=== PATIENT | female | born 1945 | race African-American/Black ===

== ENCOUNTER 2024-07-25 17:59 | Emergency (ER) | payer MEDICARE, SELFPAY ==
--- NOTE | ~2024-07-25 | XR_ITS ---
EXAMINATION: XR chest 2V Exam Date/Time: 07/25/2024 19:09 GAMMA OPERATOR HISTORY: sob Comparison: None. RESULT: Lines, tubes, and devices: Coronary stenting. Lungs and pleura: Hyperexpanded lungs. Biapical pleural scarring. Bilateral upper lobe volume loss w ith minor fissure and hilar retraction. Patchy airspace and interstitial changes in the right upper l obe. Cardiomediastinal silhouette: Normal heart size. Aortic unfolding and calcification. Other: No acute osseous or upper abdominal finding. IMPRESSION: Right upper lobe opacities may represent right upper lobe pneumonia, overlying a background of upper lobe volume loss and fibrolinear scarring, and likely emphysematous change. Reviewed, dictated and finalized at location K. A OPERATOR IMPRESSION: Right upper lobe opacities may represent right upper lobe pneumonia, overlying a background of upper lobe volume loss and fibrolinear scarring, and likely emp hysematous change.
[2024-07-25 18:37] VITALS: BP 134/67; PULSE 82; RESP 18; TEMP 36.2; O2SAT 97
--- NOTE | 2024-07-25 18:38 | ED.SOB ---
HPI - SOB/Dyspnea General Chief Complaint: Shortness of Breath/Dyspnea <Jelena Dominguez PA-C - Last Filed: 07/26/24 10:41> Stated Complaint: sob, anxiety <Jelena Dominguez PA-C - Last Filed: 07/26/24 10:41> Time Seen by Provider: 07/25/24 18:38 <Jelena Dominguez PA-C - Last Filed: 07/26/24 10:41> Focused HPI: This is a 78 year old female that presents to the ER for shortness of breath. Ongoing over the last couple of hours. Reports a cough. Denies fever, chest pain. GENERAL: Elderly, well-nourished, and in no acute distress. HEAD: Normocephalic, atraumatic. CHEST: Clear to auscultation. ?No respiratory distress. HEART: Regular rate and rhythm.? NEURO: ?Alert and oriented x3. Patient screened in triage and initial orders placed.? ?Additional care and disposition to be based upon?diagnostic testing and treatment. <Jelena Dominguez PA-C - Last Filed: 07/26/24 10:41> History of Present Illness HPI Narrative: Agree with the HPI above. Patient has complex past medical history including right-sided lung cancer status post chemotherapy 6 weeks ago, abdominal aortic aneurysm status post repair at the [facility] 2 weeks ago. She is on aspirin and Plavix but no other anticoagulants. She called EMS today for difficulty in breathing and feeling anxious. Patient states she has a history of bronchitis, does not smoke presently, has tried her inhalers at home without any relief of her symptoms. Denies any leg or calf swelling, cramping. No chest pain or chest pressure. No nausea vomiting, headache or vision changes or fever/chills. <Marcus Le MD - Last Filed: 07/26/24 02:49> Related Data Allergies/Adverse Reactions: Allergies Allergy/AdvReac Type Severity Reaction Status Date / Time No Known Allergies Allergy Verified 07/25/24 23:07 <Jelena Dominguez PA-C - Last Filed: 07/26/24 10:41> Review of Systems Review of Systems: As reviewed above in HPI <Marcus Le MD - Last Filed: 07/26/24 02:49> Exam Narrative: GENERAL: [Well-appearing, well-nourished, and in no acute distress.] HEAD: [Normocephalic, atraumatic.] EYES: [PERRLA and EOMI.] ENT: Nares clear, no rhinorrhea or epistaxis. Mucous membranes moist. NECK: Supple. CHEST: Coarse right-sided breath sounds, no wheezing or tachypnea. No accessory muscle use. HEART: [Regular rate and rhythm]. No murmur heard. [Normal peripheral pulses.] ABDOMEN: [Soft, nondistended], [nontender], [No rigidity or guarding] EXTREMITIES: Normal range of motion. [No edema.] Proximal Right lower extremity with previous surgical scars that appear clean, dry, intact SKIN: Warm, dry, no rash. NEURO: [No focal deficits]. Alert and oriented [x3.] PSYCH: [Normal mood and affect.] <Marcus Le MD - Last Filed: 07/26/24 02:49> Course Vital Signs Vital signs: Vital Signs Temperature 97.1 F L 07/25/24 18:37 Pulse Rate 82 07/25/24 18:37 Respiratory Rate 18 07/25/24 18:37 Blood Pressure 134/67 07/25/24 18:37 Pulse Oximetry 97 07/25/24 18:37 Temperature 97.1 F L 07/25/24 18:37 Pulse Rate 84 07/26/24 02:44 Respiratory Rate 28 H 07/26/24 02:44 Blood Pressure 151/86 H 07/26/24 02:44 Pulse Oximetry 98 07/26/24 02:44 Oxygen Delivery Room Air 07/25/24 23:39 <Jelena Dominguez PA-C - Last Filed: 07/26/24 10:41> Vital Signs Temperature 97.1 F L 07/25/24 18:37 Pulse Rate 82 07/25/24 18:37 Respiratory Rate 18 07/25/24 18:37 Blood Pressure 134/67 07/25/24 18:37 Pulse Oximetry 97 07/25/24 18:37 Temperature 97.1 F L 07/25/24 18:37 Pulse Rate 84 07/26/24 02:44 Respiratory Rate 28 H 07/26/24 02:44 Blood Pressure 151/86 H 07/26/24 02:44 Pulse Oximetry 98 07/26/24 02:44 Oxygen Delivery Room Air 07/25/24 23:39 <Marcus Le MD - Last Filed: 07/26/24 02:49> MDM - SOB/Dyspnea MDM Narrative Medical decision making narrative: 78-year-old female with a history of lung cancer on the right side status post chemotherapy and radiation therapy, abdominal aortic aneurysm status post repair at [facility] 2 weeks ago, hypertension, COPD and chronic bronchitis. Presents to the ER for difficulty in breathing and shortness of breath. She is not any acute distress during my initial assessment, no tachycardia, fever, hypoxia or significant blood pressure concerns. She has a well-healed surgical scar in her right groin from her recent aneurysm repair with 2+ distal pulses and warm extremity. She has some coarse asymmetric right-sided breath sounds and but no wheezing or accessory muscle use or tachypnea. Presently considerations are for pneumonia, viral syndrome, COVID, flu, less likely thromboembolic event such as PE or aortic syndrome although possible given her recent procedure. Workup was ordered including a CBC, CMP, troponin, EKG, chest x-ray and a CT angio of her chest. She was provided DuoNeb and placed on playground monitor and pulse oximetry with frequent re-evaluation. CT angiography shows a right upper lobe pneumonia and consolidation. No pulmonary embolism, no other acute findings. No leukocytosis or significant anemia. Normal platelets. Normal electrolytes, normal creatinine, normal glucose. Mildly elevated lactic acid 2.5. Negative troponin, negative BNP. Patient was re-evaluated, still stable on room air without any oxygen requirements. She states she was feeling slightly anxious requesting a dose for home Ativan 0.5 mg which was provided. I discussed the case with the hospitalist Dr. Van regarding potential admission for this patient given her age, risk factors and current diagnosis being right upper lobe pneumonia. Patient was declined from admission given her vital stability, lack of hypoxia, lack of any interventions besides antibiotics needed at this time. Hospitalist felt that she was appropriate for outpatient trial of antibiotics. I discussed this with the patient at bedside and she was okay going home with 2 different antibiotics to treat her pneumonia. Patient's family was called to arrange transportation and were also comfortable with this plan. Patient was given strict return precautions including developing any worsening shortness of breath, chest pain, nauseousness, inability to tolerate oral intake, dehydration or any other concerns and she should come back to the ER. <Marcus Le MD - Last Filed: 07/26/24 02:49> Medical Records Attestation: I reviewed the patient's medical records. <Marcus Le MD - Last Filed: 07/26/24 02:49> Lab Data Attestation: I reviewed the patient's lab results. <Marcus Le MD - Last Filed: 07/26/24 02:49> Result diagrams: 07/25/24 23:42 07/25/24 23:42 <Jelena Dominguez PA-C - Last Filed: 07/26/24 10:41> Labs: Lab Results 07/25/24 07/25/24 Range/Units 23:42 23:46 WBC 9.1 (4.5-10.0) K/mm3 RBC 4.12 L (4.2-5.4) M/mm3 Hgb 11.4 L (12.0-15.0) g/dL Hct 35.0 L (37.0-47.0) % MCV 85.0 (80-100) fl MCH 27.7 (26-34) pg MCHC 32.6 (32-36) g/dl RDW 17.7 H (11.5-14.5) % Plt Count 246 (150-375) k/mm3 MPV 8.8 (7.4-10.4) fl Immature Gran % (Auto) 0.2 (0-0.5) % Neut % (Auto) 79.6 H (45.5-73.1) % Lymph % (Auto) 14.3 L (18.3-44.2) % [place] % (Auto) 5.5 (2.6-8.5) % Eos % (Auto) 0.3 (0-4.4) % Baso % (Auto) 0.1 L (0.2-1.2) % Lymph # (Auto) 1.30 (0.9-3.2) K/mm3 [place] # (Auto) 0.5 (0.1-0.6) K/mm3 Eos # (Auto) 0.0 (0-0.3) K/mm3 Baso # (Auto) 0.0 (0.0-0.1) K/mm3 Abs Immat Gran (auto) 0.02 (0.00-0.031) K/mm3 Absolute Neuts (auto) 7.2 H (1.3-6.7) K/mm3 Absolute Nucleated RBC 0.000 (0.0-0.012) K/mm3 Nucleated RBC % 0.0 (0.0-0.2) % Sodium 139 (137-145) mmol/L Potassium 4.7 (3.4-5.0) mmol/L Chloride 101 (98-107) mmol/L Carbon Dioxide 24 (22-30) mmol/L Anion Gap 14 H (4-12) mmol/L BUN 11 (7-17) mg/dL Creatinine 1.03 H (0.7-1.0) mg/dL Estim Creat Clear Calc 23 ml/min Estimated GFR 52 L (59 - ) Glucose 132 H (65-110) mg/dL Lactic Acid 2.5 H (0.7-2.0) mmol/L Calcium 9.9 (8.4-10.2) mg/dL Total Bilirubin 0.7 (0.2-1.3) mg/dL AST 22 (14-36) U/L ALT 12 (6-35) U/L Alkaline Phosphatase 105 (38-126) U/L Troponin I < 0.012 (0.000-0.034) ng/mL NT-Pro-B Natriuret Pep 182 H (19.9-100) pg/mL Total Protein 8.0 (6.3-8.2) g/dL Albumin 4.3 (3.5-5.1) g/dL Influenza A (RT-PCR) Negative (Negative) Influenza B (RT-PCR) Negative (Negative) RSV (RT-PCR) Negative (Negative) SARS-CoV-2 RNA (RT-PCR) Negative (Negative) <Jelena Dominguez PA-C - Last Filed: 07/26/24 10:41> Lab Results 07/25/24 07/25/24 Range/Units 23:42 23:46 WBC 9.1 (4.5-10.0) K/mm3 RBC 4.12 L (4.2-5.4) M/mm3 Hgb 11.4 L (12.0-15.0) g/dL Hct 35.0 L (37.0-47.0) % MCV 85.0 (80-100) fl MCH 27.7 (26-34) pg MCHC 32.6 (32-36) g/dl RDW 17.7 H (11.5-14.5) % Plt Count 246 (150-375) k/mm3 MPV 8.8 (7.4-10.4) fl Immature Gran % (Auto) 0.2 (0-0.5) % Neut % (Auto) 79.6 H (45.5-73.1) % Lymph % (Auto) 14.3 L (18.3-44.2) % [place] % (Auto) 5.5 (2.6-8.5) % Eos % (Auto) 0.3 (0-4.4) % Baso % (Auto) 0.1 L (0.2-1.2) % Lymph # (Auto) 1.30 (0.9-3.2) K/mm3 [place] # (Auto) 0.5 (0.1-0.6) K/mm3 Eos # (Auto) 0.0 (0-0.3) K/mm3 Baso # (Auto) 0.0 (0.0-0.1) K/mm3 Abs Immat Gran (auto) 0.02 (0.00-0.031) K/mm3 Absolute Neuts (auto) 7.2 H (1.3-6.7) K/mm3 Absolute Nucleated RBC 0.000 (0.0-0.012) K/mm3 Nucleated RBC % 0.0 (0.0-0.2) % Sodium 139 (137-145) mmol/L Potassium 4.7 (3.4-5.0) mmol/L Chloride 101 (98-107) mmol/L Carbon Dioxide 24 (22-30) mmol/L Anion Gap 14 H (4-12) mmol/L BUN 11 (7-17) mg/dL Creatinine 1.03 H (0.7-1.0) mg/dL Estim Creat Clear Calc 23 ml/min Estimated GFR 52 L (59 - ) Glucose 132 H (65-110) mg/dL Lactic Acid 2.5 H (0.7-2.0) mmol/L Calcium 9.9 (8.4-10.2) mg/dL Total Bilirubin 0.7 (0.2-1.3) mg/dL AST 22 (14-36) U/L ALT 12 (6-35) U/L Alkaline Phosphatase 105 (38-126) U/L Troponin I < 0.012 (0.000-0.034) ng/mL NT-Pro-B Natriuret Pep 182 H (19.9-100) pg/mL Total Protein 8.0 (6.3-8.2) g/dL Albumin 4.3 (3.5-5.1) g/dL Influenza A (RT-PCR) Negative (Negative) Influenza B (RT-PCR) Negative (Negative) RSV (RT-PCR) Negative (Negative) SARS-CoV-2 RNA (RT-PCR) Negative (Negative) <Marcus Le MD - Last Filed: 07/26/24 02:49> Imaging Data Attestation: I personally reviewed and interpreted this imaging study as follows: <Marcus Le MD - Last Filed: 07/26/24 02:49> My impression: Impressions Chest X-Ray 07/25/24 19:22 IMPRESSION: Right upper lobe opacities may represent right upper lobe pneumonia, overlying a background of upper lobe volume loss and fibrolinear scarring, and likely emphysematous change. <Marcus Le MD - Last Filed: 07/26/24 02:49> ECG Data EKG #1: Attestation: I personally reviewed and interpreted this ECG as follows: <Marcus Le MD - Last Filed: 07/26/24 02:49> ECG completion date: 07/25/24 <Marcus Le MD - Last Filed: 07/26/24 02:49> ECG completion time: 23:04 <Marcus Le MD - Last Filed: 07/26/24 02:49> Prior ECG tracings: not available for review <Marcus Le MD - Last Filed: 07/26/24 02:49> Interpretation: No ST segment elevations, depressions or inversions. Some interventricular conduction delay with wide QRS, prominent appearing P-waves, QTC 437, MI 188, QRS 117. Overall interpretation of normal sinus rhythm without any acute occlusive event <Marcus Le MD - Last Filed: 07/26/24 02:49> Critical Care Time Critical Care Time Critical Care Time: No <Jelena Dominguez PA-C - Last Filed: 07/26/24 10:41> Discharge Plan Discharge Clinical Impression: Shortness of breath Community acquired pneumonia Qualifiers: Laterality: right Lung location: upper lobe of lung Qualified Code(s): J18.9 - Pneumonia, unspecified organism COPD (chronic obstructive pulmonary disease) Qualifiers: COPD type: unspecified COPD Qualified Code(s): J44.9 - Chronic obstructive pulmonary disease, unspecified <Jelena Dominguez PA-C - Last Filed: 07/26/24 10:41> Patient Disposition: Home, Self-Care <Jelena Dominguez PA-C - Last Filed: 07/26/24 10:41> Condition: Stable <Jelena Dominguez PA-C - Last Filed: 07/26/24 10:41> Instructions: Antibiotic Form, Community Acquired Pneumonia (ED) <Jelena Dominguez PA-C - Last Filed: 07/26/24 10:41> Additional Instructions: You have a mild pneumonia in your right upper lobe on your CT scan. No blood clot, no ongoing heart damage or any other concerns under imaging. We will send you home with 2 different oral antibiotics to treat this. Follow-up with regular doctor, return with any new or worsening concerns at any time. If you develop any fevers, worsening difficulty breathing, chest pain, inability to tolerate oral intake or any other features of concern please call 911 or proceed to the ER. <Jelena Dominguez PA-C - Last Filed: 07/26/24 10:41> Patient Language: Slovenian <NASRA Hall Last Filed: 07/26/24 10:41> Prescriptions: New doxycycline hyclate 100 mg capsule 100 mg PO BID 7 Days Qty: 14 0RF amoxicillin-pot clavulanate 875-125 mg tablet 1 tablet PO Q12H 7 Days Qty: 14 0RF <Jelena Dominguez PA-C - Last Filed: 07/26/24 10:41> Follow-up/Referrals: UNKNOWN,DOCTOR [Primary Care Provider] - <Jelena Dominguez PA-C - Last Filed: 07/26/24 10:41> Time of Disposition: 02:48 <Jelena Dominguez PA-C - Last Filed: 07/26/24 10:41> 02:48 <Marcus Le MD - Last Filed: 07/26/24 02:49>
--- OUTSIDE RECORDS SUMMARY | 2024-07-25 18:50 | XMS_ITS | CONTINUITY OF CARE DOCUMENT ---
Author Name joanna marshall Address Unknown Organization [facility] Address [address] [place] [address] [address] [place] [address] Phone [phone] Care Team Providers Care Sonar Watchstander Name Role Phone joanna marshall Unavailable Unavailable INSURANCE PROVIDERS Payer name Policy type / Coverage type [place] [employer] republican ID [employer] Other [id number]
[2024-07-25 21:34] VITALS: BP 137/77; PULSE 88; RESP 18; O2SAT 100
[2024-07-25 22:51] VITALS: BP 180/96; PULSE 94; RESP 25; O2SAT 100
[2024-07-25 23:37] VITALS: PULSE 83; RESP 25
[2024-07-25] MEDS: IPRATROPIUM 0.5 MG/ALBUTEROL SULFATE 2.5 MG AMPUL.NEB 3 ML INHALATION (23:37)
[2024-07-25 23:39] VITALS: PULSE 83; O2SAT 100
--- NOTE | 2024-07-25 23:41 | PC.NURSE ---
RT at bedside
[2024-07-25 23:43] VITALS: PULSE 81; RESP 26
--- OUTSIDE RECORDS SUMMARY | 2024-07-25 23:52 | XMS_ITS ---
Author Organization [facility], [facility] Address [address] [place] [address] [address] [place] [address] Care Team Providers Care Senior Climate Advisor Name Role Phone Pablo Ochoa MD Primary Care Provider Ángel Fitzpatrick Unavailable [phone] REASON FOR VISIT Stay at [facility] or move to [facility] Encounters Encounter Location Date Provider Diagnosis [facility] [place] [address] 08/23/2023 Ángel Benjamin Plan Of Treatment No Information Progress Notes * Jeannine BESTB:1945 ( 77 yo F)Acc No.[id number]:08/23/2023 Patient: Mary Crane :1945 A ge:77 Y S ex:Female Address:[address] [place] [address] 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
--- OUTSIDE RECORDS SUMMARY | 2024-07-25 23:53 | XMS_ITS | Encounter Summary ---
Author Organization [facility] Address [address] [place] [address] Care Team Providers Care Day Care Attendant Name Role Phone Jeremy Aguillon MD Primary Care Provider [phone] Perez Ornelas MD PhD Unavailable [phone] Johanna Dumont MD Unavailable [phone] Avery Persaud MD Primary Care Provider [phone] Rose Marie Schneider MD PhD Unavailable [phone] Idris Pickard MD Unavailable [phone] Encounter Details Date Type Department Care Team (Late st Contact Info) Description 09/05/2019 Telephone [facility] [address] [place] [address] Physician, Tdr Testing Social History Tobacco Use Types Packs/Day Years Used Date Smoking Tobacco: Former Cigarettes 0.1 52 1 968 - 05/30/2019 Cigars Smokeless Tobacco: Never Comments:1 cigar daily Alcohol Use Standard Drinks/Week Comments Not Currently 0 (1 standard drink = 0.6 oz pur e alcohol) Comments No Sex and Gender Information Value Date Recorded Sex Assigned at Not on file 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 Gender Identity Not on file Sexual Orientation Not on file documented as of this encounter Plan of Treatment Not on file documented as of this encounter Visit Diagnoses Not on filedocumented in this encounter Additional Health Concerns Infection Onset Date Last Indicated Resolved Time Tuberculosis (rule out) 06/29/2019 06/29/2019 04/0 01/2020 2:38 PM CDT COVID: Suspected 02/08/2024 02/08/2024 02/08/2024 6:47 PM CDT documented as of this encounter Care Teams Day Care Attendant Relationship Specialty Start Date End Date Jeremy Aguillon MD [address] [place] [address] PCP - General Cardiovascular Disease 06/13/19 Avery Persaud MD [address] [place] [address] PCP - General Family Medicine 03/10/22 Perez Ornelas MD PhD [address] [place] [address] Medical Oncologist/Hematologis t Medical Oncology 09/12/19 Johanna Dumont MD [address] [facility] [address] [place] [address] Radiation Oncologist Radiation Oncology 07/17/20 Rose Marie Schneider MD PhD [address] [place] [address] Consulting Physician Plastic Surgery 07/03/24 Idris Pickard MD [address] [facility] [address] [place] [address] Surgeon Vascular Surgery 07/03/24 documented as of this encounter
--- OUTSIDE RECORDS SUMMARY | 2024-07-25 23:53 | XMS_ITS | Encounter Summary ---
Author Organization [facility] Healthcare Address [address] [place] [address] Care Team Providers Care Wooden Barrel Mechanic Name Role Phone Jeremy Aguillon MD Primary Care Provider [phone] Perez Ornelas MD PhD Unavailable [phone] Johanna Dumont MD Unavailable [phone] Avery Persaud MD Primary Care Provider [phone] Rose Marie Schneider MD PhD Unavailable [phone] Idris Pickard MD Unavailable [phone] Encounter Details Date Type Department Care Team (Late st Contact Info) Description 10/07/2020 Telephone [facility] Imaging [address] [place] [address] Rosalinda Bates, RT Social History Tobacco Use Types Packs/Day Years Used Date Smoking Tobacco: Former Cigarettes 0.1 52 1 968 - 05/30/2019 Cigars Smokeless Tobacco: Never Comments:1 cigar daily Alcohol Use Standard Drinks/Week Comments Not Currently 0 (1 standard drink = 0.6 oz pur e alcohol) Comments No Sex and Gender Information Value Date Recorded Sex Assigned at Not on file 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 Gender Identity Not on file Sexual Orientation Not on file documented as of this encounter Plan of Treatment Not on file documented as of this encounter Visit Diagnoses Not on filedocumented in this encounter Additional Health Concerns Infection Onset Date Last Indicated Resolved Time COVID: Suspected 02/08/2024 02/08/2024 02/08/2024 6:47 PM CDT documented as of this encounter Care Teams Wooden Barrel Mechanic Relationship Specialty Start Date End Date Jeremy Aguillon MD [address] [place] [address] PCP - General Cardiovascular Disease 06/13/19 Avery Persaud MD [address] [place] [address] PCP - General Family Medicine 03/10/22 Perez Ornelas MD PhD [address] [place] [address] Medical Oncologist/Hematologis t Medical Oncology 09/12/19 Johanna Dumont MD [address] [facility] [place] [place] [address] Radiation Oncologist Radiation Oncology 07/17/20 Rose Marie Schneider MD PhD [address] [place] [address] Consulting Physician Plastic Surgery 07/03/24 Idris Pickard MD [address] [facility] [address] [place] [address] Surgeon Vascular Surgery 07/03/24 documented as of this encounter
--- OUTSIDE RECORDS SUMMARY | 2024-07-25 23:53 | XMS_ITS | Clinical Summary ---
Author Organization [facility] Main [place] Address [address] [place] [address] Care Team Providers Care Change Over Name Role Phone Perez Ornelas MD PhD Unavailable [phone] Johanna Dumont MD Unavailable [phone] Avery Persaud MD Primary Care Provider [phone] Rose Marie Schneider MD PhD Unavailable [phone] Idris Pickard MD Unavailable [phone] Allergies No known active allergies Medications amLODIPine (NORVASC) 5 mg tablet Take 2 tablets (10 mg total) by mouth every morning Take two tablets daily 04/02/20 19 Active atorvastatin (LIPITOR) 10 mg tablet Take 1 tablet (10 mg total) by mouth every morning 04/27/20 19 Active aspirin 81 mg enteric coated tablet Take 1 tablet (81 mg total) by mouth 3 (three) times a week Tuesday, Tuesday, Tuesday mornings Active calcium carbonate-vitamin D3 500 mg(1,250mg) -400 unit tablet Take 2 tablets by mouth every morning Active nitroglycerin (NITROSTAT) 0.4 mg SL tablet 09/08/19 20 Active ergocalciferol (VITAMIN D) 50,000 unit capsule Twice weekly 06/13/19 21 Active albuterol HFA (PROVENTIL HFA,VENTOLIN HFA,PROAIR HFA) 90 mcg/actuation inhaler Inhale 1 puff every 4 (four) hours as needed for wheezing or shortness of breath 1 each 1 02/17/20 24 Active umeclidinium-milka nteroL (ANORO ELLIPTA) 62.5-25 mcg/actuation blister with device Inhale 1 puff daily 30 each 2 02/17/20 24 Active hydrOXYzine (ATARAX) 25 mg tablet Take 1 tablet (25 mg total) by mouth nightly Takes nightly, able to take up to every 8 hrs Active acetaminophen 500 mg capsule Take 1 capsule (500 mg total) by mouth every 6 (six) hours as needed for pain 30 tablet 07/03/19 25 Active oxyCODONE (ROXICODONE) 5 mg immediate release tabletIndications :Pain Take 1 tablet (5 mg total) by mouth 4 (four) times a day as needed for pain 20 tablet 07/03/19 25 Active clopidogreL (PLAVIX) 75 mg tablet Take 1 tablet (75 mg total) by mouth daily 30 tablet 11 07/03/19 25 2025 Active acetaminophen-cod eine (TYLENOL with CODEINE #3) 300-30 mg per tablet TK 1 T PO BID PRN P 08/24/19 20 2024 Discontinued(S top Taking at Discharge) LORazepam (ATIVAN) 1 mg tablet TAKE ONE-HALF TABLET BY MOUTH TWICE DAILY NEEDED 05/26/20 20 2024 Discontinued(T herapy completed) OLANZapine (ZyPREXA ZYDIS) 5 mg disintegrating tablet Take 1 tablet (5 mg total) by mouth nightly 30 tablet 02/17/20 24 2024 Discontinued(S top Taking at Discharge) zinc sulfate (ZINCATE) 50 mg zinc (220 mg) capsuleIndication s:Zinc Deficiency Take 1 capsule (220 mg total) by mouth daily 30 capsule 02/17/20 24 2024 Discontinued(T herapy completed) traMADoL (ULTRAM) 25 mg tablet Take 1 tablet (25 mg total) by mouth every 8 (eight) hours as needed for pain 90 tablet 06/07/19 25 2024 Discontinued(S top Taking at Discharge) traMADoL (ULTRAM) 50 mg tabletIndications :Non-small cell carcinoma of right lung (HCC) Take 0.5 tablets (25 mg total) by mouth every 6 (six) hours as needed for pain 40 tablet 06/08/19 25 2024 Discontinued(S top Taking at Discharge) cephalexin (KEFLEX) 250 mg capsuleIndication s:Prophylaxis, Medical Take 1 capsule (250 mg total) by mouth 3 (three) times a day for 7 days 21 capsule 07/03/19 25 2024 Discontinued cephalexin (KEFLEX) 250 mg capsuleIndication s:Prophylaxis, Medical Take 1 capsule (250 mg total) by mouth 3 (three) times a day for 7 days 21 capsule 07/03/19 25 2024 Active Problems Problem Noted Date Diagnosed Date 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 Continued right thigh pain, recent CTA revealed 7cm R femoral artery PSA - OR 06/29/24 for right femoral pseudoaneurysm repair with muscle flap by PRS - Up with assist, avoid extreme flexion/extension. - DVT ppx - Floor status/ q 4 hr NV checks and VS - diet as tolerated. - Continue asa/ statin, Plavix. - Pain control - PRS planning for Prevena X 2 weeks. F/u plan for drain management. - Continue to monitor OR culture. Arthralgia 03/15/2024 Discharge planning issues 02/16/2024 Assessment & Plan (02/16/2024 1:56 PM CDT): Needs bedside commode and wheeled walker. DME orders placed Bedside Commode: The medical staff is recommending and ordering a bedside commode for this patient due to: The patient is confined to a single room. Wheeled Walker: A walker is being ordered due to patient having a mobility limitation that limits their ability to complete ADL's such as bathing, toileting, dressing, and grooming. A cane or crutch has been eliminated as being of help in completing these ADL's. Patient can safely use the walker Left wrist pain 02/13/2024 Assessment & Plan (02/17/2024 8:45 AM CDT): Patient has had bilateral wrist pain since admission, x-ray showed moderate osteoarthritis. 02/12, patient with acute pain of left wrist with associated erythema and warmth. CRP and ESR elevated. Orthopedics was consulted who attempted arthrocentesis on 02/12 which was a dry tap. Per orthopedics exam most consistent with non suppurative cellulitis and no concern for pyogenic arthritis of wrist at this time. Okay to have diet and continue expectant management of cellulitis with antimicrobials - started on Keflex for possible cellulitis 02/15. - pain control with topical Voltaren, 1 g Tylenol q.6 hours p.r.n., oxycodone 2.5 mg p.r.n., IV Dilaudid 0.2 mg p.r.n. uric acid 3.6 Weakness generalized 02/08/2024 Assessment & Plan (02/16/2024 10:11 AM CDT): Patient is presenting with general weakness of approximately 2 weeks' duration associated with decreased oral intake and gradually worsening shortness of breath. Admission labs notable for elevated creatinine of 1.15 probably at baseline, otherwise stable metabolic panel, mild leukocytosis of 13.6 K with neutrophilia, stable hemoglobin of 12, negative RVP, negative UA. Chest x-ray without evidence of consolidation. CT CAP with no acute findings. Cortisol wnl. Overall, likely that acute leg pain led to ibuprofen usage that caused extreme nausea that worsened appetite, then weakness. Also, constipation/large stool burden on CT scan leading to likely poor appetite. TTE poor study; recommend cardiac MRI, but pt unable to lie flat. TSH within normal limits. CRP and ESR significantly elevated. ESTELA negative. Rheumatoid factor mildly elevated at 19, CCP antibody negative. HIV negative. - follow up with blood cultures; no growth - checked cardiac MRI given TTE was extremely limited. Shows atrial and ventricles normal in size without focal wall motion abnormality. Partially imaged consolidation right upper lobe and small cyst in the liver dome - PT/OT; recommend longterm facility - RD consult; started Zyprexa nightly - started bowel regimen to improve nausea that likely led to decreased appetite and generalized weakness; effective, will down titrate --- MiraLax b.i.d.., docusate senna b.i.d., bisacodyl p.r.n. - discuss with Radiology the findings in the kidney on CT scan 02/10. They feel the kidney findings are not concerning and stable but are more concerned about the aortofemoral bypass graft. re-engaged vascular surgery about possible infected graft as noted under PAD section. PET/CT scan was done which showed 4.2 cm seroma with no signs of infection. Per vascular surgery no further interventions indicated and they will follow-up with patient in 3 months with repeat CTA to monitor for aneurysmal change - endocrinology consult given elevated cortisol --- no concern given likely physiologic. No further workup indicated --- DEXA as outpatient if not performed previously. Shortness of breath 02/08/2024 Assessment & Plan (02/10/2024 6:31 PM CDT): Patient endorses acute on chronic shortness of breath. Respiratory status stable and satting well on room air on admission. 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 Patient with PFTs from 2019 that show moderate obstruction. Patient on no medications for emphysema. CT scan with no acute findings - on room air - start Laba/Lama for COPD. Continue with albuterol p.r.n. Severe protein-calorie malnutrition (CMS/HCC) Assessment & Plan (02/13/2024 2:18 PM CDT): Patient has hx of sever malnutrition and now presenting with worsening oral intake. Mostly secondary to her chronic comorbidities including cancer, severe emphysema. - RD consult - started Zyprexa nightly - zinc level low, started replacement CAD (coronary artery disease) 02/08/2024 Assessment & Plan (02/14/2024 3:33 PM CDT): Hx of RCA in 2014. EKG no evidence of acute ischemia. Cardiac MRI shows normal cardiac size and function and no delayed gadolinium enhancement suggestive of infiltrate cardiomyopathy or infarct. - CW ASA and statin. Elevated serum creatinine 02/08/2024 Assessment & Plan (02/17/2024 8:46 AM CDT): Resolved. Looks like she has CKD. - creatinine back to baseline, monitor BMP Emphysema lung 02/08/2024 Assessment & Plan (06/29/2024 7:41 AM FIRST AID OFFICER): - Continue home inhalers - SpO2 checks with VS Assessment & Plan (02/08/2024 9:11 PM CDT): Please see SOB section. Atherosclerosis of [place] ar teries of extremities with intermittent claudication, bilateral legs 09/26/2023 Elevated serum creatinine 09/18/2020 Hypercalcemia 09/18/2020 Encounter for surgical after care following surgery on the circulatory system 07/21/2020 Need for immunization against influenza 03/20/20 HTN (hypertension) 10/25/2019 Assessment & Plan (06/29/2024 7:41 AM FIRST AID OFFICER): - Continue home amlodipine as BP tolerates Assessment & Plan (02/10/2024 6:17 PM CDT): - CW Amlodipine. 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 She received 35 cycles of pembrolizumab has a single line 1st agent therapy starting from October 17, 2019 2 November 16, 2021. She also received radiation in August 16, 2020. With concerns of disease progression on PET scan in July 19, 2023, she was started back on pembrolizumab monotherapy starting July 14, 2023, and is s/p 8 cycles with her last cycle being on 12/29/2023 - CT chest/abd/pelvis with stable post-treatment changes in lungs and no abdominal findings - PET scan shows complete metabolic response to therapy et as evidenced by interval decrease in metabolic activity associated with right upper lobe post radiation consolidation and left upper/lower lobe pulmonary nodules and no evidence for jennifer or distant metastatic disease. - Re prognosis: Per oncology discussion with her outpatient oncologist Dr. Ornelas, we could expect disease control for over a year on single agent pembrolizumab based on her updated scans this admission and historical control on this regimen. Obviously, prognosis might change if she required a treatment break (e.g. for immunotherapy-induced fatigue) - follow-up with oncology as outpatient Non-small cell carcinoma of right lung 0 Assessment & Plan (06/29/2024 7:38 AM FIRST AID OFFICER): - Currently undergoing treatment with pembrolizumab. Last cycle 06/07/24 Severe malnutrition (CMS/HCC) 06/29/2019 Assessment & Plan (06/29/2024 7:40 AM FIRST AID OFFICER): Poor appetite at baseline. Started on olanzapine for appetite stimulant per oncology note - Consult wrapping clerk - Regular diet + supplements Leukocytosis 06/29/2019 Assessment & Plan (06/29/2019 4:53 PM FIRST AID OFFICER): WBC slightly increased to 16 (13.1). Likely inflammatory following procedure. Afebrile. - No indication for culture, consider if temp > 38.5 - Periop antibiotics to completion Cavitary lesion of lung 06/28/2019 Assessment & Plan (06/29/2019 4:43 PM FIRST AID OFFICER): Called by radiology yesterday that pt may have cavitary lesion concerning for TB. Patient on 2L NC and breathing unlabored. No S&S or risk factors for TB. Patient a current smoker, CXR with RUL opacification, hyperinflation of lungs c/w chronic obstructive lung disease. FB even. - IGRA sent to r/o TB, f/u result - Encourage incentive spirometry - Out of bed, physical therapy, pulm hygiene - Wean O2 for oxygen saturations > 92% - FBG even Assessment & Plan (06/28/2019 7:36 PM FIRST AID OFFICER): Arrived extubated on simple face mask and transitioned to NC. Current smoker. Called by radiology that pt may have cavitary lesion concerning for TB. No risk factors. - Send IGRA to r/o TB - Encourage incentive spirometry - Out of bed, physical therapy POD 1 when cleared by vascular - Wean O2 for oxygen saturations > 92% Acute postoperative pain 06/28/2019 Assessment & Plan (06/29/2019 4:41 PM FIRST AID OFFICER): Expected post op pain s/p vascular surgery. Patient also with chronic lower back pain which she takes tylenol w/ codeine at home for. Patient complaining of gradually increasing, generalized lower back pain and at midline incision site. Pain did not radiate. Surgical sites soft, margins approximated, soft, no warmth noted. Patient splinting with breathing 2/2 pain. - start scheduled tylenol and lidocaine patch to back - start Dilaudid CORRECTIONAL THERAPY DIRECTOR 0.2 mg q10 lockout for breakthrough pain 1200: pain more well controlled after pain plan as listed above started, breathing more deeply and cough improved, amb with PT without any pain or respiratory issues Assessment & Plan (06/29/2019 2:19 AM FIRST AID OFFICER): Expected postop pain. Currently NPO. - Dilaudid PRN - Transition to PO tylenol and oxycodone when able to take PO Assessment & Plan (06/28/2019 7:36 PM FIRST AID OFFICER): Expected postop pain. Currently NPO. - Dilaudid PRN - Transition to PO tylenol and oxycodone when able to take PO At high risk for peripheral neurovascular dysfun ction 06/28/2019 Assessment & Plan (06/29/2019 7:36 PM FIRST AID OFFICER): S/p aorto bifem bypass, bliat fem endarterectomy, and aortic endarterectomy. Preop pt did not have signals to bilateral feet. Post operatively, patient now with (+) DPs bilaterally, continues to NOT have PT signals which is unchanged since OR and vascular surgery aware. NV checks with bilat strength 5/5, denies paresthesias. - Q2H neurovascular checks - Notify vascular surgery for any changes in exam Assessment & Plan (06/29/2019 2:20 AM FIRST AID OFFICER): S/p aorto bifem bypass. Preop pt did not have signals to bilateral feet + DP bilateral, unable to obtain PTs, unchanged since OR. - Q1H neurovascular checks - Notify vascular surgery for any changes in exam Assessment & Plan (06/28/2019 7:37 PM FIRST AID OFFICER): S/p aorto bifem bypass. Preop pt did not have signals to bilateral feet. Now with + doppler signal to DP, unable to get signal to PT. - Q1H neurovascular checks - Notify vascular surgery for any changes in exam Acute blood loss anemia 06/28/2019 Assessment & Plan (06/29/2019 4:50 PM FIRST AID OFFICER): Expected following cardiac surgery. No blood products intra op. Hgb stable at 11.0. No pressors. - No indication for transfusion, consider if patient becomes hemodynamically unstable with increased pressor requirements or symptomatic - CBC daily Assessment & Plan (06/28/2019 7:34 PM FIRST AID OFFICER): Post H&H from 13.8/41 preop. No blood products intraop. - No indication for transfusion - Daily CBC PAD (peripheral artery disease) 06/15/2019 Assessment & Plan (02/16/2024 10:08 AM CDT): S/p aortofemoral bypass bilateral femoral endarterectomy, and aortic endartorectomy in 2019. CT scan showed an aneurysmal dilation and peripheral thrombus at distal right femoral anastomosis, patient without motor or sensory symptoms. Vascular surgery consulted initially and signed off. No acute surgical intervention, can follow-up in 3 months with repeat CTA. Discussed with Radiology on 02/10 and concern for possible infection of graft. Reengaged vascular surgery on 02/10 for recommendations and PET/CT scan was done which showed 4.2 cm seroma with no signs of infection. Per vascular surgery no further interventions indicated and they will follow-up with patient in 3 months with repeat CTA to monitor for aneurysmal changes. - CW ASA and atorvastatin - follow-up with vascular surgery as outpatient in 3 months with repeat CTA to monitor for aneurysmal changes. Assessment & Plan (06/29/2019 4:42 PM FIRST AID OFFICER): S/p aorto bifem bypass. Postop care to include: - Q2H neurovascular checks - OOBTC/PT with less than 90 degree hip flexion - start ASA for AC - start SQH for DVT ppx - Holding home Plavix - NPO until return of bowel function per vascular, ok for sips with meds - q4h SSI for glycemic control - Jada op Ancef to completion - d/c pratt - d/c art line Assessment & Plan (06/28/2019 7:38 PM FIRST AID OFFICER): S/p aorto bifem bypass. Postop care to include: - Q1H neurovascular checks - Bedrest tonight, HOB 30 degrees or less - ASA and SQH tomorrow - Holding home Plavix - NPO until return of bowel function per vascular - Periop Ancef Encounters Date Type Department Care Team Description 07/23/2024 Documentation [facility] Oncology [address] [place] [phone] Diane Osorio, NEHA 07/20/2024 1:45 PM FIRST AID OFFICER Ancillary Procedure [facility] Vascular Lab at the [facility] [address] 8th [place] [phone] Encounter for surgical aftercare following surgery on the circulatory system; Presence of other vascular implants and grafts 07/20/2024 11:45 AM FIRST AID OFFICER Office Visit [facility] Surgery [address] [place] [phone] Rose Marie Schneider MD PhD Femoral artery pseudo-aneurysm, right (HCC) (Primary Dx) 07/19/2024 11:00 AM FIRST AID OFFICER - 07/19/2024 11:59 PM FIRST AID OFFICER Hospital Encounter [facility] [address] [place] [address] Non-small cell carcinoma of right lung (HCC) Discharge Disposition: Discharge to home or self care 07/19/2024 Orders Only [facility] Oncology [address] [place] [address] Diane Osorio RN Non-small cell carcinoma of right lung (HCC) (Primary Dx) 07/09/2024 10:30 AM FIRST AID OFFICER Office Visit [facility] Surgery [address] [place] [address] Yaneth Darnell NP Open wound of inguinal region, initial encounter 07/04/2024 Telephone [facility] Surgery [address] 1 [place] [address] Idris Pickard MD 07/03/2024 Orders Only [facility] Vascular Surgery [address] [place] [address] Office [facility] [address] [place] [address] Idris Pickard MD Encounter for surgical aftercare following surgery on the circulatory system (Primary Dx); Presence of other vascular implants and grafts 06/29/2024 9:33 AM FIRST AID OFFICER Anesthesia Event [facility] Operating Room [address] [place] [address] Kulwinder Cantu MD Nizam, Rasheeq Rahman, MD 06/29/2024 9:30 AM FIRST AID OFFICER - 06/29/2024 3:15 PM FIRST AID OFFICER Surgery [facility] Operating Room [address] [place] [address] Idris Pickard MD REPAIR PSEUDOANEURYSM - FEMORAL 06/29/2024 7:46 AM FIRST AID OFFICER - 07/03/2024 3:31 PM FIRST AID OFFICER Hospital Encounter [address] [phone] Idris Pickard MD Femoral artery pseudo-aneurysm, right (HCC) (Primary Dx) Discharge Disposition: Discharge to home or self care 06/28/2024 Telephone [facility] Vascular Surgery [address] [place] [address] Office [facility] [address] [place] [address] Idris Pickard MD 06/28/2024 Telephone [facility] Vascular Surgery [address] [place] [address] [address] [place] [address] Idris Pickard MD 06/26/2024 10:30 AM FIRST AID OFFICER Office Visit [facility] Vascular Surgery [address] [place] [address] [address] [place] [phone] Aisha Chirinos NP Encounter for surgical aftercare following surgery on the circulatory system (Primary Dx) 06/26/2024 9:05 AM FIRST AID OFFICER - 06/26/2024 11:59 PM FIRST AID OFFICER Hospital Encounter [facility] [address] [place] [address] Idris Pickard MD Encounter for surgical aftercare following surgery on the circulatory system Discharge Disposition: Discharge to home or self care 06/08/2024 Telephone [facility] Oncology [address] [place] [address] [address] [place] [phone] Celi Medellin CMA Tramadol 06/07/2024 12:45 PM FIRST AID OFFICER Infusion [facility] [place] at [address] [place] [phone] Non-small cell carcinoma of right lung (HCC) (Primary Dx) 06/07/2024 12:15 PM FIRST AID OFFICER Office Visit [facility] Oncology [address] [place] [address] [address] [place] [phone] Perez Ornelas MD PhD Non-small cell carcinoma of right lung (HCC) (Primary Dx) 06/07/2024 11:15 AM FIRST AID OFFICER Lab [facility] at [address] [place] [phone] Non-small cell carcinoma of right lung (HCC) 06/01/2024 Orders Only [facility] Surgery [address] [facility] 8th [place] [address] Idris Pickard MD Encounter for surgical aftercare following surgery on the circulatory system (Primary Dx) 05/31/2024 Telephone [facility] Oncology [address] [place] [address] [address] [place] [phone] Carson Butler, NEHA Scheduling Appointments from Last 3 Months Immunizations Immunization Administration Dates Next Due Influenza, Quadrivalent, Griselda l Culture-based MDCK, Preservative Free, Antibiotic Free, Intramuscular 03/20/2020 Surgical History Surgery Date Site/Laterality Comments CARDIAC STENT PLACEMENT 05/30/2006 - 05/29/2007 ERIK to RCA CARDIAC CATHETERIZATION 05/30/2006 - 05/29/2007 ABDOMINAL SURGERY VASCULAR SURGERY HYSTERECTOMY Medical History Medical History Date Comments PAD (peripheral artery disease) (HCC) CAD (coronary artery disease) Hypertension Stroke (HCC) Non-small cell carcinoma of right lung (HCC) 07/28 Emphysema lung (HCC) 02/08/2024 Family History Medical History Relation Name Comments Cancer Father Diabetes Mother Heart disease Mother Hypertension Mother Anesthesia problems Neg Hx Relation Name Status Comments Father Mother Social History Tobacco Use Types Packs/Day Years Used Date Smoking Tobacco: Former Cigarettes 0.1 52 1 968 - 05/30/2019 Cigars Smokeless Tobacco: Never Tobacco Cessation:Counseling Given: Not Answered Comments:1 cigar daily Alcohol Use Standard Drinks/Week Comments Not Currently 0 (1 standard drink = 0.6 oz pur e alcohol) Personal Safety Answer Date Recorded Have you ever been in or are you currently in a harmful physical or emotional relationship or is someone making you feel afraid or unsafe? Denies 06/29/2024 Comments No Sex and Gender Information Value Date Recorded Sex Assigned at Not on file Legal Sex Female 12:08 PM FIRST AID OFFICER Gender Identity Not on file Sexual Orientation Not on file Obstetrics History Last Filed Vital Signs Vital Sign Reading Time Taken Comments Blood Pressure 120/63 07/03/2024 7:19 AM FIRST AID OFFICER Pulse 84 07/03/2024 7:19 AM FIRST AID OFFICER Temperature 36.8 C (98.2 F) 07/03/2024 7:19 AM FIRST AID OFFICER Respiratory Rate 18 07/03/2024 7:19 AM FIRST AID OFFICER Oxygen Saturation 98% 07/03/2024 7:19 AM FIRST AID OFFICER Inhaled Oxygen Concentration - - Weight 36.3 kg (80 lb 0.4 oz) 06/29/2024 4:42 PM FIRST AID OFFICER Height 165.1 cm (5' 5 ) 06/29/2024 4:42 PM FIRST AID OFFICER Body Mass Index 13.32 06/29/2024 4:42 PM FIRST AID OFFICER Plan of Treatment Health Maintenance Due Date Last Done Comments Depression Screening 1945 Osteoporosis Screening-Bone Density Scan 1945 DTaP/Tdap/Td Vaccine (1 - Tdap) 12/30/1954 Hepatitis B Screening 12/30/1961 Pneumococcal vaccine 65+ (1 of 2 - PCV) 12/30/1962 Zoster Vaccine (1 of 2) 12/30/1962 Well Visit 65+ 12/30/2008 Influenza Vaccine (#1) 2024 03/20/2020 Fall Risk Assessment 07/03/2025 07/03/2024, 08/08/2020, 07/17/2020 Medical Devices Implanted Type Area Wool Fleece Grader Device Identifier Shelf Expiration Date Model / Serial / Lot Horizontal Systems [id number] Hemashield Gold 14mm 7mm 40cm 2 Velour Knit Sizer Accessory 2 Latex Free - [id number] - [id number] Implanted:Qty: 1 on 06/28/2019 by Idris Pickard MD at [facility] Graft Bilateral: Abdomen [employer] [id number] 06/29/2021 [id number] / [id number] Terumo Cardio Vascular Gelsoft Plus Vascutek 12/6mm 45cm Main Leg Bore Reduced [id number] - [id number] - [id number] Implanted:Qty: 1 on 06/29/2024 by Idris Pickard MD at [facility] Graft Right: Femoral Terumo Cardio Vascular 03/29/2026 [id number] / [id number] / Cardiac Stent-11/09/2006 Implanted: 007 (Quantity not on file) Stent Coronary Inst[employer] TAXUS EXPRESS 2 / / Description:Placed in 2006 x1 stent Procedures Procedure Name Priority Date/Time Associated Diagnosis Comments US ARTERIAL DUPLEX LOWER EXTREMITY RIGHT LIMITED Schedule Routine, Read Routine (OP Routine) 07/20/2024 5:05 PM FIRST AID OFFICER Encounter for surgical aftercare following surgery on the circulatory system Presence of other vascular implants and grafts US ARTERIAL DOPPLER LOWER EXTREMITY BILATERAL Schedule Routine, Read Routine (OP Routine) 07/20/2024 5:05 PM FIRST AID OFFICER Encounter for surgical aftercare following surgery on the circulatory system Presence of other vascular implants and grafts CT CHEST W CONTRAST Schedule Routine, Read Routine (OP Routine) 07/19/2024 11:13 AM FIRST AID OFFICER Non-small cell carcinoma of right lung (HCC) EGFR Routine 07/02/2024 9:03 PM FIRST AID OFFICER DIFFERENTIAL AUTO Routine 07/02/2024 9:0 3 PM FIRST AID OFFICER CBC WITH AUTO DIFFERENTIAL Routine 07/02/2024 9:03 PM FIRST AID OFFICER BASIC METABOLIC PANEL Routine 07/02/2024 9:03 PM FIRST AID OFFICER EGFR Timed 07/01/2024 4:52 AM FIRST AID OFFICER CBC WITHOUT DIFFERENTIAL Timed 07/01/2024 4:52 AM FIRST AID OFFICER BASIC METABOLIC PANEL Timed 07/01/2024 4:52 AM FIRST AID OFFICER EGFR Routine 06/29/2024 11:30 PM FIRST AID OFFICER DIFFERENTIAL AUTO Routine 06/29/2024 11: 30 PM FIRST AID OFFICER BASIC METABOLIC PANEL Routine 06/29/2024 11:30 PM FIRST AID OFFICER CBC WITH AUTO DIFFERENTIAL Routine 06/29/2024 11:30 PM FIRST AID OFFICER POCT ACTIVATED CLOTTING TIME, LOW RANGE Routine 06/29/2024 12:56 PM FIRST AID OFFICER POC BLOOD GAS AND CHEMISTRIES, ARTERIAL Routine 06/29/2024 12:51 PM FIRST AID OFFICER POCT ACTIVATED CLOTTING TIME, LOW RANGE Routine 06/29/2024 12:47 PM FIRST AID OFFICER POCT ACTIVATED CLOTTING TIME, LOW RANGE Routine 06/29/2024 12:16 PM FIRST AID OFFICER POCT ACTIVATED CLOTTING TIME, LOW RANGE Routine 06/29/2024 11:51 AM FIRST AID OFFICER TISSUE AEROBIC AND ANAEROBIC CULTURE AND GRAM STAIN Routine 06/29/2024 11:48 AM FIRST AID OFFICER POCT ACTIVATED CLOTTING TIME, LOW RANGE Routine 06/29/2024 11:18 AM FIRST AID OFFICER POC BLOOD GAS AND CHEMISTRIES, ARTERIAL Routine 06/29/2024 10:32 AM FIRST AID OFFICER POCT ACTIVATED CLOTTING TIME, LOW RANGE Routine 06/29/2024 10:26 AM FIRST AID OFFICER PERIPHERAL LINE Routine 06/29/2024 10:19 AM FIRST AID OFFICER ANESTHESIA ARTERIAL LINE PLACEMENT Routine 06/29/2024 10:19 AM FIRST AID OFFICER ANESTHESIA INTUBATION Routine 06/29/2024 10:18 AM FIRST AID OFFICER PREPARE RBC STAT 06/29/2024 9:45 AM FIRST AID OFFICER PEDICLE FLAP - GROIN 06/29/2024 9:33 AM FIRST AID OFFICER Femoral artery pseudo-aneurysm, right (HCC) REPAIR PSEUDOANEURYSM - FEMORAL 06/29/2024 9:33 AM FIRST AID OFFICER Femoral artery pseudo-aneurysm, right (HCC) POC BLOOD GAS AND CHEMISTRIES, ARTERIAL Routine 06/29/2024 8:45 AM FIRST AID OFFICER TYPE AND SCREEN Timed 06/29/2024 8:25 AM FIRST AID OFFICER PREPARE RBC Timed 06/29/2024 8:16 AM FIRST AID OFFICER CTA ABDOMEN PELVIS W WO CONTRAST Schedule Routine, Read Routine (OP Routine) 06/26/2024 9:11 AM FIRST AID OFFICER Encounter for surgical aftercare following surgery on the circulatory system EGFR STAT 06/07/2024 11:34 AM FIRST AID OFFICER Non-small cell carcinoma of right lung (HCC) DIFFERENTIAL AUTO Routine 06/07/2024 11: 34 AM FIRST AID OFFICER Non-small cell carcinoma of right lung (HCC) CBC WITH AUTO DIFFERENTIAL Routine 06/07/2024 11:34 AM FIRST AID OFFICER Non-small cell carcinoma of right lung (HCC) COMPREHENSIVE METABOLIC PANEL STAT 06/07/2024 11:34 AM FIRST AID OFFICER Non-small cell carcinoma of right lung (HCC) TSH Routine 06/07/2024 11:34 AM FIRST AID OFFICER Non-small cell carcinoma of right lung (HCC) from Last 3 Months Results * US Arterial Duplex Lower Extremity Right Limited (07/20/2024 5:05 PM FIRST AID OFFICER) Anatomical Region Laterality Modality Vascular Right Ultrasound 07/20/2024 1:16 PM FIRST AID OFFICER Narrative 07/20/2024 9:43 PM FIRST AID OFFICER [facility] - Department of Vascular Surgery, Vascular Laboratory [address] [place] [address] Lower Extremity Arterial Duplex - Bypass Graft Report Patient Name: MARY HEDRICK : 1945 Study Date: 07/20/2024 1:16:44 PM Gender: F Tech: Location: [facility] Provider: IDRIS PICKARD Quality: Adequate Order Provider: IDRIS PICKARD PROCEDURES: Arterial Report: Limited: Duplex imaging of Right limb(ao-bifemoral bypass) distal anastomosis and outflow proximal profunda(status post pseudoaneurysm resection). INDICATIONS: Encounter for Surgical Aftercare Following Surgery on the Circulatory System; Presence of Vascular Implants and Grafts Dx: Encounter for surgical aftercare following surgery on the circulatory system [Z48.812 (ICD-10-CM)]; Presence of other vascular implants and grafts [Z95.828 (ICD-10-CM)] Z48.812 Encounter for surgical aftercare following surgery on the circulatory system, and Z95.828 Presence of other vascular implants and grafts. MEASUREMENTS: Right Value Units Rt Distal Graft 28 cm/s Rt Distal Anastomosis 81 cm/s Rt Outflow Artery 74 cm/s Rt Posterior Tibial Dst PSV 0 cm/s Rt Anterior Tibial Dst PSV 13 cm/s Rt Peroneal Mid PSV 19 cm/s Right Value Units FINDINGS: Performing Die Repair Machinist: Brenda Cat RVT. Right Leg: The distal graft waveform is multiphasic. The distal anastomosis waveform is multiphasic. The outflow (proximal profunda)waveform is multiphasic. The profunda was imaged to the mid thigh where it branches. Both branches are patent and waveforms are multiphasic. 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 The right popliteal artery is patent. Waveform is monophasic. Right Posterior Tibial: The posterior tibial artery waveform is absent(known finding). The lateral plantar is patent with retrograde flow and low velocity (less than 10cm/s). Right Anterior Tibial: The distal anterior tibial waveform is monophasic. Comments: Incidental finding: non-pulsatile anechoic structure with a transverse measurement of 1.2cm x 1.5cm identified in the proximal thigh superficial to the distal anastomosis. This findings may be consistent with fluid collection. Clinical correlation suggested. CONCLUSIONS: 1. See Ankle/Brachial Index report. 2. The distal portion of the right limb and iliofemoral graft is patent with no evidence of hemodynamically significant stenosis. The (new)outflow profunda artery is patent and waveform is multiphasic. 3. Known occlusion of the right femoral artery. 4. Incidental finding: non-pulsatile anechoic structure with a transverse measurement of 1.2cm x 1.5cm identified in the right proximal thigh superficial to the distal anastomosis. This findings may be consistent with fluid collection. Clinical correlation suggested. HISTORY: 06/29/2024 s/p Resection of right common femoral pseudoaneurysm and partial resection of the right limb of the aortobifemoral bypass and iliofemoral bypass from the right limb of the aortobifemoral bypass to the right profunda femoris artery bypass using a 6 graft. 06/28/2019 Aobifemoral bypass graft - PREVIOUS STUDIES: No previous studies for comparison. DISCLAIMER: The study images and the final report will be retained in the patient chart by the Vascular Laboratory for the legally required time period. This chart constitutes the legal record of any testing performed. ATTESTATION: I have reviewed and interpreted the pertinent images and measurements of this study. I attest to the conclusions in the final report that is provided above. Electronically Signed By: Idris Pickard MD FACS 07/20/2024 9:43:32 PM FIRST AID OFFICER Procedure Note Idris Pickard MD - 07/20/2024 [facility] - Department of Vascular Surgery,Vascular Laboratory [address] [place] [address] Lower Extremity Arterial Duplex - Bypass Graft Report Patient Name: MARY HEDRICK : 1945 Study Date: 07/20/2024 1:16:44 PM Gender: F Tech: Location: [facility] Provider: IDRIS PICKARD Quality: Adequate Order Provider: IDRIS PICKARD PROCEDURES: Arterial Report: Limited: Duplex imaging of Right limb(ao-bifemoral bypass) distalanastomosis and outflow proximal profunda(status post pseudoaneurysm resection). INDICATIONS: Encounter for Surgical Aftercare Following Surgery on the CirculatorySystem; Presence of Vascular Implants and Grafts Dx: Encounter for surgical aftercare following surgery on the circulatorysystem [Z48.812 (ICD-10-CM)]; Presence of other vascular implants and grafts [Z95.828(ICD-10-CM)] Z48.812 Encounter for surgical aftercare following surgery on thecirculatory system, and Z95.828 Presence of other vascular implants and grafts. MEASUREMENTS: Right Value Units Rt Distal Graft 28 cm/s Rt Distal Anastomosis 81 cm/s Rt Outflow Artery 74 cm/s Rt Posterior Tibial Dst PSV 0 cm/s Rt Anterior Tibial Dst PSV 13 cm/s Rt Peroneal Mid PSV 19 cm/s Right Value Units FINDINGS: Performing Die Repair Machinist: Brenda Cat RVT. Right Leg: The distal graft waveform is multiphasic. The distal anastomosis waveformis multiphasic. The outflow (proximal profunda)waveform is multiphasic. The profunda wasimaged to the mid thigh where it branches. Both branches are patent and waveforms aremultiphasic. 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 The right popliteal artery is patent. Waveform is monophasic. Right Posterior Tibial: The posterior tibial artery waveform is absent(known finding). The lateral plantar is patent with retrograde flow and low velocity (lessthan 10cm/s). Right Anterior Tibial: The distal anterior tibial waveform is monophasic. Comments: Incidental finding: non-pulsatile anechoic structure with a transversemeasurement of 1.2cm x 1.5cm identified in the proximal thigh superficial to the distalanastomosis. This findings may be consistent with fluid collection. Clinicalcorrelation suggested. CONCLUSIONS: 1. See Ankle/Brachial Index report. 2. The distal portion of the right limb and iliofemoral graft is patentwith no evidence of hemodynamically significant stenosis. The (new)outflow profunda arteryis patent and waveform is multiphasic. 3. Known occlusion of the right femoral artery. 4. Incidental finding: non-pulsatile anechoic structure with a transversemeasurement of 1.2cm x 1.5cm identified in the right proximal thigh superficial to thedistal anastomosis. This findings may be consistent with fluid collection.Clinical correlation suggested. HISTORY: 06/29/2024 s/p Resection of right common femoral pseudoaneurysm and partialresection of the right limb of the aortobifemoral bypass and iliofemoral bypass fromthe right limb of the aortobifemoral bypass to the right profunda femoris artery bypassusing a 6 graft. 06/28/2019 Aobifemoral bypass graft - PREVIOUS STUDIES: No previous studies for comparison. DISCLAIMER: The study images and the final report will be retained in the patientchart by the Vascular Laboratory for the legally required time period. This chartconstitutes the legal record of any testing performed. ATTESTATION: I have reviewed and interpreted the pertinent images and measurements ofthis study. I attest to the conclusions in the final report that is provided above. Electronically Signed By: Idris Pickard MD [facility] 07/20/2024 9:43:32 PM FIRST AID OFFICER us Idris Pickard MD IMG US PROCEDURES Final Resul t * US Arterial Doppler Lower Extremity Bilateral (07/20/2024 5:05 PM FIRST AID OFFICER) Anatomical Region Laterality Modality Vascular Bilateral Ultrasound 07/20/2024 1:42 PM FIRST AID OFFICER Narrative 07/20/2024 11:08 PM FIRST AID OFFICER [facility] - Department of Vascular Surgery, Vascular Laboratory [address] [place] [address] Lower Extremity Arterial Doppler Report Patient Name: MARY HEDRICK : 1945 Study Date: 07/20/2024 1:42:00 PM Gender: F Tech: Brenda Cat [facility] Location: [facility] Provider: IDRIS PICKARD Quality: Adequate Order Provider: IDRIS PICKARD PROCEDURES: Arterial Report: Bilateral lower extremity arterial Doppler exam at rest. INDICATIONS: Encounter for Surgical Aftercare Following Surgery on the Circulatory System; Presence of Vascular Implants and Grafts; femoral psa repair Dx: Encounter for surgical aftercare following surgery on the circulatory system [Z48.812 (ICD-10-CM)]; Presence of other vascular implants and grafts [Z95.828 (ICD-10-CM)] Z48.812 Encounter for surgical aftercare following surgery on the circulatory system, and Z95.828 Presence of other vascular implants and grafts. MEASUREMENTS: Right Value Units Left Value Units Rt Brachial Pressure 153 mmHg Lt Brachial Pressure 149 mmHg Rt TARGETEER Pressure absent- confirmed Duplex mmHg Lt TARGETEER Pressure 118 mmHg Rt DPA Pressure 97 mmHg Lt DPA Pressure 106 mmHg Rt 1st Digit Pressure 56 mmHg Lt 1st Digit Pressure 78 mmHg Rt PT JOSE Resting not applicable Lt PT JOSE Resting 0.77 Rt AT JOSE Resting 0.63 Lt AT JOSE Resting 0.69 Rt Digit/Arm Index 0.37 Lt Digit/Arm Index 0.51 Right Value Units Left Value Units FINDINGS: Performing Die Repair Machinist: Brenda Cat RVT. Right Common Femoral Artery Analysis: The common femoral artery waveform is multiphasic. Right Popliteal Artery Analysis: The popliteal waveform is monophasic. Right Posterior Tibial Artery Analysis: The posterior tibial waveform is absent. Duplex imaging demonstrates lateral plantar patent with retrograde flow and low velocity <10cm/s. Right Anterior Tibial Artery Analysis: The anterior tibial waveform is monophasic. Left Common Femoral Artery Analysis: The common femoral artery waveform is multiphasic. Left Popliteal Artery Analysis: The popliteal waveform is monophasic. Left Posterior Tibial Artery Analysis: The posterior tibial waveform is monophasic. Left Anterior Tibial Artery Analysis: The anterior tibial waveform is monophasic. CONCLUSIONS: 1. The above listed Ankle/Brachial Indicies at rest are consistent with moderate peripheral arterial disease - claudication, bilaterally (for reference, claudication range is 0.50 -0.89). 2. Bilateral Digit/Arm Indices are abnormal (for reference, abnormal WILLIS is <0.6). 3. There is evidence of arterial insufficiency bilaterally at the level of femoral-popliteal arteries. 4. There is evidence of right leg arterial insufficiency at the level of posterior tibial artery. HISTORY: 06/29/2024 s/p Resection of right common femoral pseudoaneurysm and partial resection of the right limb of the aortobifemoral bypass and iliofemoral bypass from the right limb of the aortobifemoral bypass to the right profunda femoris artery bypass using a 6 mm rifampin soaked Gelsoft graft. 06/28/2019 Aobifemoral bypass graft - PREVIOUS STUDIES: Previous study on 09/26/23 R JOSE 0.78 L JOSE 0.76. DISCLAIMER: The study images and the final report will be retained in the patient chart by the Vascular Laboratory for the legally required time period. This chart constitutes the legal record of any testing performed. ATTESTATION: I have reviewed and interpreted the pertinent images and measurements of this study. I attest to the conclusions in the final report that is provided above. Electronically Signed By: Idris Pickard MD FACS 07/20/2024 9:49:06 PM FIRST AID OFFICER Procedure Note Idris Pickard MD - 07/20/2024 [facility] - Department of Vascular Surgery,Vascular Laboratory [address] [place] [address] Lower Extremity Arterial Doppler Report Patient Name: MARY HEDRICK : 1945 Study Date: 07/20/2024 1:42:00 PM Gender: F Tech: EmoryBrenda [facility] Location: [facility] Ref Provider: IDRIS PICKARD Quality: Adequate Order Provider: IDRIS PICKARD PROCEDURES: Arterial Report: Bilateral lower extremity arterial Doppler exam at rest. INDICATIONS: Encounter for Surgical Aftercare Following Surgery on the CirculatorySystem; Presence of Vascular Implants and Grafts; femoral psa repair Dx: Encounter for surgical aftercare following surgery on the circulatorysystem [Z48.812 (ICD-10-CM)]; Presence of other vascular implants and grafts [Z95.828(ICD-10-CM)] Z48.812 Encounter for surgical aftercare following surgery on thecirculatory system, and Z95.828 Presence of other vascular implants and grafts. MEASUREMENTS: Right Value Units Left Value Units Rt Brachial Pressure 153 mmHg Lt Brachial Pressure 149 mmHg Rt TARGETEER Pressure absent- confirmed Duplex mmHg Lt TARGETEER Pressure 118 mmHg Rt DPA Pressure 97 mmHg Lt DPA Pressure 106 mmHg Rt 1st Digit Pressure 56 mmHg Lt 1st Digit Pressure 78 mmHg Rt PT JOSE Resting not applicable Lt PT JOSE Resting 0.77 Rt AT JOSE Resting 0.63 Lt AT JOSE Resting 0.69 Rt Digit/Arm Index 0.37 Lt Digit/Arm Index 0.51 Right Value Units Left Value Units FINDINGS: Performing Die Repair Machinist: Brenda Cat RVT. Right Common Femoral Artery Analysis: The common femoral artery waveform is multiphasic. Right Popliteal Artery Analysis: The popliteal waveform is monophasic. Right Posterior Tibial Artery Analysis: The posterior tibial waveform is absent. Duplex imaging demonstrates lateral plantar patent with retrograde flowand low velocity <10cm/s. Right Anterior Tibial Artery Analysis: The anterior tibial waveform is monophasic. Left Common Femoral Artery Analysis: The common femoral artery waveform is multiphasic. Left Popliteal Artery Analysis: The popliteal waveform is monophasic. Left Posterior Tibial Artery Analysis: The posterior tibial waveform is monophasic. Left Anterior Tibial Artery Analysis: The anterior tibial waveform is monophasic. CONCLUSIONS: 1. The above listed Ankle/Brachial Indicies at rest are consistent withmoderate peripheral arterial disease - claudication, bilaterally (for reference,claudication range is 0.50 -0.89). 2. Bilateral Digit/Arm Indices are abnormal (for reference, abnormal DAIis <0.6). 3. There is evidence of arterial insufficiency bilaterally at the level of femoral-popliteal arteries. 4. There is evidence of right leg arterial insufficiency at the level ofposterior tibial artery. HISTORY: 06/29/2024 s/p Resection of right common femoral pseudoaneurysm and partialresection of the right limb of the aortobifemoral bypass and iliofemoral bypass fromthe right limb of the aortobifemoral bypass to the right profunda femoris artery bypassusing a 6 mm rifampin soaked Gelsoft graft. 06/28/2019 Aobifemoral bypass graft - PREVIOUS STUDIES: Previous study on 09/26/23 R JOSE 0.78 L JOSE 0.76. DISCLAIMER: The study images and the final report will be retained in the patientchart by the Vascular Laboratory for the legally required time period. This chartconstitutes the legal record of any testing performed. ATTESTATION: I have reviewed and interpreted the pertinent images and measurements ofthis study. I attest to the conclusions in the final report that is provided above. Electronically Signed By: Idris Pickard MD [facility] 07/20/2024 9:49:06 PM FIRST AID OFFICER us Idris Pickard MD [facility] US PROCEDURES Final Resul t * CT chest with contrast (07/19/2024 11:13 AM FIRST AID OFFICER) Anatomical Region Laterality Modality Body N/A Computed Tomogra phy 07/19/2024 11:2 7 AM FIRST AID OFFICER Impressions 07/19/2024 11:27 AM FIRST AID OFFICER 1. Stable exam without disease progression in the chest. Electronically signed by: Jason Palacios M.D. Narrative 07/19/2024 11:27 AM FIRST AID OFFICER EXAMINATION: Computed tomography of the chest with intravenous contrast HISTORY: Lung cancer, restaging TECHNIQUE: Transaxial computed tomographic images of the chest were obtained with intravenous contrast according to the standard protocol after the uneventful administration of 88 mL Opti-Ray 350 intravenous contrast. COMPARISON: PET/CT performed on 02/15/2024 FINDINGS: There is severe emphysema in both lungs. Posterior right upper lobe consolidation is again seen compatible with treated lung cancer. The size of the consolidation is a proximally 5 cm in greatest dimension, unchanged. No pleural effusion or pneumothorax. No new consolidation. Sub-5 mm nodules in the left lower lobe superior segment on series 3 image 61 and are unchanged. Unchanged 7 mm left upper lobe nodule on series 3 image 53. No new pulmonary nodule or mass. Central airways appear widely patent. There is no axillary, supraclavicular, mediastinal, or hilar lymphadenopathy. Nonaneurysmal thoracic aorta. Coronary atherosclerotic calcifications are present. Normal heart size without pericardial effusion. Imaged portions of the upper abdomen demonstrate what are likely benign-appearing hepatic cysts, unchanged. Normal imaged portions of the kidneys pancreas adrenal glands and spleen. Partially imaged abdominal aortic aneurysm. No osseous metastatic disease or fracture. Unchanged L2 sclerotic lesion, likely benign given its lack of FDG uptake on prior PET/CT. Procedure Note Jason Palacios MD - 07/19/2024 EXAMINATION: Computed tomography of the chest with intravenous contrast HISTORY: Lung cancer, restaging TECHNIQUE: Transaxial computed tomographic images of the chest were obtained with intravenous contrast according to the standard protocol after the uneventful administration of 88 mL Opti-Ray 350 intravenous contrast. COMPARISON: PET/CT performed on 02/15/2024 FINDINGS: There is severe emphysema in both lungs. Posterior right upper lobe consolidation is again seen compatible with treated lung cancer. The size of the consolidation is a proximally 5 cm in greatest dimension, unchanged. No pleural effusion or pneumothorax. No new consolidation. Sub-5 mm nodules in the left lower lobe superior segment on series 3 image 61 and are unchanged. Unchanged 7 mm left upper lobe nodule on series 3 image 53. No new pulmonary nodule or mass. Central airways appear widely patent. There is no axillary, supraclavicular, mediastinal, or hilar lymphadenopathy. Nonaneurysmal thoracic aorta. Coronary atherosclerotic calcifications are present. Normal heart size without pericardial effusion. Imaged portions of the upper abdomen demonstrate what are likely benign-appearing hepatic cysts, unchanged. Normal imaged portions of the kidneys pancreas adrenal glands and spleen. Partially imaged abdominal aortic aneurysm. No osseous metastatic disease or fracture. Unchanged L2 sclerotic lesion, likely benign given its lack of FDG uptake on prior PET/CT. IMPRESSION: 1. Stable exam without disease progression in the chest. Electronically signed by: Jason Palacios M.D. Perez Ornelas MD PhD IMG CT PROCEDURES Francy l Result * (ABNORMAL) eGFR (07/02/2024 9:03 PM FIRST AID OFFICER) Pathologist [facility] eGFR 55(L) >=60 mL/min/1. 73 m2 Comment: Interpretive Data Reference Interval Normal >/= 90 mL/min/1.73m2 Mildly decreased* 60 - 89 mL/min/1.73m2 Mildly to moderately decreased 45 - 59 mL/min/1.73m2 Moderately to severely decreased 30 - 44 mL/min/1.73m2 Severely decreased 15 - 29 mL/min/1.73m2 Kidney Failure < 15 mL/min/1.73m2 *Relative to young adult level Estimated glomerular filtration rate is determined by the 2020 CKD-EPI equation recommended by the National Kidney Foundation (A Unifying Approach to GFR Estimation: Recommendations of the NKF-ASK Task Force on Reassessing the Inclusion of Race in Diagnosing Kidney Disease, JASN 2020). The CKD-EPI equation should not be used for patients with unstable renal function and has not been validated in children and those over 70. Current interpretive data was last reviewed 2021. Blood 07/02/2024 9:03 PM FIRST AID OFFICER 07/02/2024 9:34 PM FIRST AID OFFICER Crista Lane NP LAB BLOOD ORDERABLES F inal Result [facility] Department [place] [address] * Differential, auto (07/02/2024 9:03 PM FIRST AID OFFICER) Pathologist [facility] Neutrophil abs 6.0 1.5 - 6.5 K/cumm Imm gran abs 0.0 0.0 - 0.1 K/cumm [facility] Lymphocyte abs 1.4 0.8 - 3.3 K/cumm [facility] Monocyte abs 0.6 0.2 - 0.8 K/cumm [facility] Eosinophil abs 0.1 0.0 - 0.5 K/cumm [facility] Basophil abs 0.0 0.0 - 0.1 K/cumm [facility] Neutrophil pct 73.3 % [facility] Comment: Interpretive Data Percent cell count reference ranges are not reported, since discordance with absolute values may lead to misinterpretation of CBC data. Current Interpretive Data was last revised on 2017. Imm gran pct 0.5 % [facility] Comment: Interpretive Data Percent cell count reference ranges are not reported, since discordance with absolute values may lead to misinterpretation of CBC data. Current Interpretive Data was last revised on 2017. Lymphocyte pct 17.6 % [facility] Comment: Interpretive Data Percent cell count reference ranges are not reported, since discordance with absolute values may lead to misinterpretation of CBC data. Current Interpretive Data was last revised on 2017. Monocyte pct 7.5 % [facility] Comment: Interpretive Data Percent cell count reference ranges are not reported, since discordance with absolute values may lead to misinterpretation of CBC data. Current Interpretive Data was last revised on 2017. Eosinophil pct 1.0 % [facility] Comment: Interpretive Data Percent cell count reference ranges are not reported, since discordance with absolute values may lead to misinterpretation of CBC data. Current Interpretive Data was last revised on 2017. Basophil pct 0.1 % [facility] Comment: Interpretive Data Percent cell count reference ranges are not reported, since discordance with absolute values may lead to misinterpretation of CBC data. Current Interpretive Data was last revised on 2017. Blood 07/02/2024 9:03 PM FIRST AID OFFICER 07/02/2024 9:36 PM FIRST AID OFFICER Crista Lane NP LAB BLOOD ORDERABLES F inal Result [facility] Department [place] [address] * (ABNORMAL) CBC with auto differential (07/02/2024 9:03 PM FIRST AID OFFICER) [facility] WBC 8.2 3.8 - 9.9 K/cumm Hgb 8.4(L) 11.9 - 15.5 g/dL [facility] Hct 24.3(L) 35.6 - 45.5 % [facility] Plt 220 150 - 400 K/cumm [facility] MPV 9.7 9.1 - 12.3 fL [facility] RBC 3.07(L) 3.90 - 5.20 M/cumm [facility] MCV 79.2(L) 81.3 - 96.4 fL [facility] MCH 27.4 27.1 - 33.3 pg [facility] MCHC 34.6 32.3 - 35.7 g/dL [facility] RDW CV 15.9(H) 11.1 - 14.9 % [facility] RDW SD 46.0 35.7 - 48.1 fL [facility] NRBC abs 0.00 0.00 - 0.01 K/cumm [facility] Blood 07/02/2024 9:03 PM FIRST AID OFFICER 07/02/2024 9:36 PM FIRST AID OFFICER Crista Lane NP LAB BLOOD ORDERABLES F inal Result [facility] Department [place] [address] * Basic metabolic panel (07/02/2024 9:03 PM FIRST AID OFFICER) [facility] Sodium 139 135 - 145 mmol/L Potassium, pl 3.4 3.3 - 4.9 mmol/L [facility] Chloride 100 97 - 110 mmol/L [facility] CO2 30 22 - 32 mmol/L [facility] Anion gap 9 2 - 15 mmol/L [facility] BUN 14 6 - 25 mg/dL [facility] Creatinine 1.03 0.60 - 1.10 mg/dL [facility] Glucose 105 70 - 199 mg/dL [facility] Comment: Interpretive Data Fasting glucose >/= 126 mg/dl is diagnostic for diabetes. Fasting is defined as no caloric intake for at least 8 hours. Fasting glucose between 100 mg/dl to 125 mg/dl is diagnostic of prediabetes. In a patient with classic symptoms of hyperglycemia or hyperglycemic crisis, a random glucose >/= 200 mg/dl is diagnostic for diabetes. In the absence of unequivocal hyperglycemia, results should be confirmed by repeat testing. The classification and Diagnosis of Diabetes Diabetes Care 202; 46: S19-S40. Current interpretive data was last revised 2022. Calcium 8.5 8.5 - 10.3 mg/dL [facility] Blood 07/02/2024 9:03 PM FIRST AID OFFICER 07/02/2024 9:34 PM FIRST AID OFFICER Crista Lane NP LAB BLOOD ORDERABLES F inal Result [facility] Department [place] [address] * (ABNORMAL) eGFR (07/01/2024 4:52 AM FIRST AID OFFICER) eGFR 58(L) >=60 mL/min/1. 73 m2 Comment: Interpretive Data Reference Interval Normal >/= 90 mL/min/1.73m2 Mildly decreased* 60 - 89 mL/min/1.73m2 Mildly to moderately decreased 45 - 59 mL/min/1.73m2 Moderately to severely decreased 30 - 44 mL/min/1.73m2 Severely decreased 15 - 29 mL/min/1.73m2 Kidney Failure < 15 mL/min/1.73m2 *Relative to young adult level Estimated glomerular filtration rate is determined by the 2020 CKD-EPI equation recommended by the National Kidney Foundation (A Unifying Approach to GFR Estimation: Recommendations of the NKF-ASK Task Force on Reassessing the Inclusion of Race in Diagnosing Kidney Disease, JASN 2020). The CKD-EPI equation should not be used for patients with unstable renal function and has not been validated in children and those over 70. Current interpretive data was last reviewed 2021. Blood 07/01/2024 4:52 AM FIRST AID OFFICER 07/01/2024 5:53 AM FIRST AID OFFICER Vasiliy Ramirez MD LAB BLOOD ORDERABLES Fin al Result Performing Organization Address City/[facility]/ZIP Co de Phone Number [facility] Department [place] [address] * (ABNORMAL) CBC without differential (07/01/2024 4:52 AM FIRST AID OFFICER) WBC 12.4(H) 3.8 - 9.9 K/cumm Hgb 9.8(L) 11.9 - 15.5 g/dL [facility] Hct 29.2(L) 35.6 - 45.5 % [facility] Plt 216 150 - 400 K/cumm [facility] MPV 9.9 9.1 - 12.3 fL [facility] RBC 3.62(L) 3.90 - 5.20 M/cumm [facility] MCV 80.7(L) 81.3 - 96.4 fL [facility] MCH 27.1 27.1 - 33.3 pg [facility] MCHC 33.6 32.3 - 35.7 g/dL [facility] RDW CV 15.9(H) 11.1 - 14.9 % [facility] RDW SD 47.0 35.7 - 48.1 fL [facility] NRBC abs 0.00 0.00 - 0.01 K/cumm [facility] Blood 07/01/2024 4:52 AM FIRST AID OFFICER 07/01/2024 5:53 AM FIRST AID OFFICER Vasiliy Ramirez MD LAB BLOOD ORDERABLES Fin al Result [facility] [place] [address] * Basic metabolic panel (07/01/2024 4:52 AM FIRST AID OFFICER) Pathologist [facility] Sodium 137 135 - 145 mmol/L Potassium, pl 3.7 3.3 - 4.9 mmol/L [facility] Chloride 101 97 - 110 mmol/L [facility] CO2 30 22 - 32 mmol/L [facility] Anion gap 6 2 - 15 mmol/L [facility] BUN 9 6 - 25 mg/dL [facility] Creatinine 0.99 0.60 - 1.10 mg/dL [facility] Glucose 97 70 - 199 mg/dL [facility] Comment: Interpretive Data Fasting glucose >/= 126 mg/dl is diagnostic for diabetes. Fasting is defined as no caloric intake for at least 8 hours. Fasting glucose between 100 mg/dl to 125 mg/dl is diagnostic of prediabetes. In a patient with classic symptoms of hyperglycemia or hyperglycemic crisis, a random glucose >/= 200 mg/dl is diagnostic for diabetes. In the absence of unequivocal hyperglycemia, results should be confirmed by repeat testing. The classification and Diagnosis of Diabetes Diabetes Care 2021; 46: S19-S40. Current interpretive data was last revised 2022. Calcium 8.6 8.5 - 10.3 mg/dL [facility] Blood 07/01/2024 4:52 AM FIRST AID OFFICER 07/01/2024 5:53 AM FIRST AID OFFICER us Vasiliy Ramirez MD LAB BLOOD ORDERABLES Fin al Result [facility] Department [place] [address] * eGFR (06/29/2024 11:30 PM FIRST AID OFFICER) Pathologist [facility] eGFR 69 >=60 mL/min/1. 73 m2 Comment: Interpretive Data Reference Interval Normal >/= 90 mL/min/1.73m2 Mildly decreased* 60 - 89 mL/min/1.73m2 Mildly to moderately decreased 45 - 59 mL/min/1.73m2 Moderately to severely decreased 30 - 44 mL/min/1.73m2 Severely decreased 15 - 29 mL/min/1.73m2 Kidney Failure < 15 mL/min/1.73m2 *Relative to young adult level Estimated glomerular filtration rate is determined by the 2020 CKD-EPI equation recommended by the National Kidney Foundation (A Unifying Approach to GFR Estimation: Recommendations of the NKF-ASK Task Force on Reassessing the Inclusion of Race in Diagnosing Kidney Disease, JASN 202). The CKD-EPI equation should not be used for patients with unstable renal function and has not been validated in children and those over 70. Current interpretive data was last reviewed 2021. Blood 06/29/2024 11:3 0 PM FIRST AID OFFICER 06/30/2024 12:53 AM FIRST AID OFFICER us Idris Pickard MD LAB BLOOD ORDERABLES Final Re sult [facility] Department [place] [address] * (ABNORMAL) Differential, auto (06/29/2024 11:30 PM FIRST AID OFFICER) Neutrophil abs 9.7(H) 1.5 - 6.5 K/cumm Imm gran abs 0.0 0.0 - 0.1 K/cumm [facility] Lymphocyte abs 0.8 0.8 - 3.3 K/cumm [facility] Monocyte abs 0.7 0.2 - 0.8 K/cumm [facility] Eosinophil abs 0.0 0.0 - 0.5 K/cumm [facility] Basophil abs 0.0 0.0 - 0.1 K/cumm [facility] Neutrophil pct 86.5 % [facility] Comment: Interpretive Data Percent cell count reference ranges are not reported, since discordance with absolute values may lead to misinterpretation of CBC data. Current Interpretive Data was last revised on 2017. Imm gran pct 0.4 % [facility] Comment: Interpretive Data Percent cell count reference ranges are not reported, since discordance with absolute values may lead to misinterpretation of CBC data. Current Interpretive Data was last revised on 2017. Lymphocyte pct 7.0 % [facility] Comment: Interpretive Data Percent cell count reference ranges are not reported, since discordance with absolute values may lead to misinterpretation of CBC data. Current Interpretive Data was last revised on 2017. Monocyte pct 6.0 % [facility] Comment: Interpretive Data Percent cell count reference ranges are not reported, since discordance with absolute values may lead to misinterpretation of CBC data. Current Interpretive Data was last revised on 2017. Eosinophil pct 0.0 % [facility] Comment: Interpretive Data Percent cell count reference ranges are not reported, since discordance with absolute values may lead to misinterpretation of CBC data. Current Interpretive Data was last revised on 2017. Basophil pct 0.1 % [facility] Comment: Interpretive Data Percent cell count reference ranges are not reported, since discordance with absolute values may lead to misinterpretation of CBC data. Current Interpretive Data was last revised on 2017. Blood 06/29/2024 11:3 0 PM FIRST AID OFFICER 06/30/2024 12:53 AM FIRST AID OFFICER Idris Pickard MD LAB BLOOD ORDERABLES Final Re sult [facility] Department [place] [address] * (ABNORMAL) CBC with auto differential (06/29/2024 11:30 PM FIRST AID OFFICER) WBC 11.3(H) 3.8 - 9.9 K/cumm Hgb 10.6(L) 11.9 - 15.5 g/dL [facility] Hct 31.4(L) 35.6 - 45.5 % [facility] Plt 249 150 - 400 K/cumm [facility] MPV 9.9 9.1 - 12.3 fL [facility] RBC 3.89(L) 3.90 - 5.20 M/cumm [facility] MCV 80.7(L) 81.3 - 96.4 fL [facility] MCH 27.2 27.1 - 33.3 pg [facility] MCHC 33.8 32.3 - 35.7 g/dL [facility] RDW CV 15.8(H) 11.1 - 14.9 % [facility] RDW SD 46.3 35.7 - 48.1 fL [facility] NRBC abs 0.00 0.00 - 0.01 K/cumm [facility] Blood 06/29/2024 11:3 0 PM FIRST AID OFFICER 06/30/2024 12:53 AM FIRST AID OFFICER Idris Pickard MD LAB BLOOD ORDERABLES Final Re sult Performing Organization Address City/[facility]/ZIP Co de Phone Number [facility] Department [place] [address] * Basic metabolic panel (06/29/2024 11:30 PM FIRST AID OFFICER) Sodium 141 135 - 145 mmol/L Potassium, pl 3.7 3.3 - 4.9 mmol/L [facility] Chloride 104 97 - 110 mmol/L [facility] CO2 28 22 - 32 mmol/L [facility] Anion gap 9 2 - 15 mmol/L [facility] BUN 8 6 - 25 mg/dL [facility] Creatinine 0.85 0.60 - 1.10 mg/dL [facility] Glucose 120 70 - 199 mg/dL [facility] Comment: Interpretive Data Fasting glucose >/= 126 mg/dl is diagnostic for diabetes. Fasting is defined as no caloric intake for at least 8 hours. Fasting glucose between 100 mg/dl to 125 mg/dl is diagnostic of prediabetes. In a patient with classic symptoms of hyperglycemia or hyperglycemic crisis, a random glucose >/= 200 mg/dl is diagnostic for diabetes. In the absence of unequivocal hyperglycemia, results should be confirmed by repeat testing. The classification and Diagnosis of Diabetes Diabetes Care 202; 46: S19-S40. Current interpretive data was last revised 2022. Calcium 8.7 8.5 - 10.3 mg/dL [facility] Blood 06/29/2024 11:3 0 PM FIRST AID OFFICER 06/30/2024 12:53 AM FIRST AID OFFICER Idris Pickard MD LAB BLOOD ORDERABLES Final Re sult [facility] Department [place] [address] * POCT Activated clotting time, low range (06/29/2024 12:56 PM FIRST AID OFFICER) [facility] ACT 137 123 - 168 sec POC Performer [id number] [facility] POC Device Number [id number] [facility] Blood 06/29/2024 12:5 6 PM FIRST AID OFFICER 06/29/2024 12:56 PM FIRST AID OFFICER us Idris Pickard MD LAB POCT ORDERABLES - DEVICE Final Result [facility] Department [place] [address] * (ABNORMAL) POC Blood Gas and Chemistries, Arterial - (06/29/2024 12:51 PM FIRST AID OFFICER) [facility] pH, Art POC 7.37 7.35 - 7.45 pCO2, Art POC 43 35 - 45 mmHg [facility] pO2, Art POC 216(H) 83 - 108 mmHg [facility] Na, POC 139 135 - 145 mmol/L [facility] K POC 3.5 3.3 - 4.9 mmol/L [facility] Comment: Interpretive Data Not all point of care methods assess for hemolysis. Confirm with instrument and retest K+ if not consistent with clinical signs and symptoms. Current Interpretive Data was last revised on 2023. Cl, POC 111(H) 97 - 110 mmol/L [facility] Ionized Ca, POC 4.85 4.50 - 5.10 mg/dL [facility] Glucose, POC 115 70 - 199 mg/dL [facility] Lactate, POC 2.9(H) 0.7 - 2.0 mmol/L [facility] SO2 (ophelia) arterial 100(H) 90 - 95 % [facility] Base excess, POC -0.5 mmol/L [facility] HCO3, Art POC 25 20 - 30 mmol/L [facility] Hct, POC 27.0(L) 36.3 - 45.3 % [facility] Total Hb, POC 9.1(L) 11.9 - 15.5 g/dL [facility] Blood 06/29/2024 12:5 1 PM FIRST AID OFFICER 06/29/2024 12:51 PM FIRST AID OFFICER us Idris Pickard MD LAB POCT ORDERABLES - DEVICE Final Result Performing Organization Address [facility] Co de Phone Number [facility] [place] [address] * (ABNORMAL) POCT Activated clotting time, low range (06/29/2024 12:47 PM FIRST AID OFFICER) ACT 170(H) 123 - 168 sec POC Performer [id number] [facility] POC Device Number [id number] [facility] Blood 06/29/2024 12:4 7 PM FIRST AID OFFICER 06/29/2024 12:47 PM FIRST AID OFFICER us Idris Pickard MD LAB POCT ORDERABLES - DEVICE Final Result Performing Organization Address [facility] [place] [address] * (ABNORMAL) POCT Activated clotting time, low range (06/29/2024 12:16 PM FIRST AID OFFICER) ACT 231(H) 123 - 168 sec POC Performer [id number] [facility] POC Device Number [id number] [facility] Blood 06/29/2024 12:1 6 PM FIRST AID OFFICER 06/29/2024 12:16 PM FIRST AID OFFICER us Idris Pickard MD LAB POCT ORDERABLES - DEVICE Final Result Performing Organization Address [facility] [place] [address] * (ABNORMAL) POCT Activated clotting time, low range (06/29/2024 11:51 AM FIRST AID OFFICER) ACT 285(H) 123 - 168 sec POC Performer [id number] [facility] POC Device Number [id number] [facility] Blood 06/29/2024 11:5 1 AM FIRST AID OFFICER 06/29/2024 11:51 AM FIRST AID OFFICER us Idris Pickard MD LAB POCT ORDERABLES - DEVICE Final Result Performing Organization Address [facility] Co de Phone Number [facility] [place] [address] * Tissue aerobic and anaerobic culture and gram stain Tissue Groin, right (06/29/2024 11:48 AM FIRST AID OFFICER) [facility] Direct Specimen Exam Stain: Abundant polymorphonuclear leukocytes seen. No organisms seen. Report Final Report: No growth [facility] Tissue (Groin, right) 06/29/2024 11:48 AM FIRST AID OFFICER 06/29/2024 3:25 PM FIRST AID OFFICER Narrative [facility] - 07/02/2024 11:12 AM FIRST AID OFFICER Right Femoral Artery Pseudoaneurysm Testing performed by [facility] ([phone]) Specimens submitted from normally sterile body sites will have all bacterial morphotypes identified. Specimens that contain grossly mixed wendy and/or are from body sites that are not normally sterile will be examined for Staphylococcus aureus, Pseudomonas aeruginosa, beta-hemolytic strep, vancomycin-resistant Enterococcus, Bacteroides, Parabacteroides, Clostridium perfringens and fungus. If any of these are isolated, the organism will be reported. Current interpretive data was last revised on 2019. us Idris Pickard MD LAB MICROBIOLOGY - GENERAL OR DERABLES Final Result Performing Organization Address [facility] Co de Phone Number [facility] [place] [address] * (ABNORMAL) POCT Activated clotting time, low range (06/29/2024 11:18 AM FIRST AID OFFICER) ACT 318(H) 123 - 168 sec POC Performer [id number] [facility] POC Device Number [id number] [facility] Blood 06/29/2024 11:1 8 AM FIRST AID OFFICER 06/29/2024 11:18 AM FIRST AID OFFICER Idris Pickard MD LAB POCT ORDERABLES - DEVICE Final Result [facility] Department [place] [address] * (ABNORMAL) POC Blood Gas and Chemistries, Arterial - (06/29/2024 10:32 AM FIRST AID OFFICER) pH, Art POC 7.44 7.35 - 7.45 pCO2, Art POC 36 35 - 45 mmHg [facility] pO2, Art POC 296(H) 83 - 108 mmHg [facility] Na, POC 139 135 - 145 mmol/L [facility] K POC 3.0(L) 3.3 - 4.9 mmol/L [facility] Comment: Interpretive Data Not all point of care methods assess for hemolysis. Confirm with instrument and retest K+ if not consistent with clinical signs and symptoms. Current Interpretive Data was last revised on 2023. Cl, POC 109 97 - 110 mmol/L [facility] Ionized Ca, POC 4.72 4.50 - 5.10 mg/dL [facility] Glucose, POC 126 70 - 199 mg/dL [facility] Lactate, POC 1.3 0.7 - 2.0 mmol/L [facility] SO2 (ophelia) arterial 100(H) 90 - 95 % [facility] Base excess, POC 0.6 mmol/L [facility] HCO3, Art POC 26 20 - 30 mmol/L [facility] Hct, POC 35.0(L) 36.3 - 45.3 % [facility] Total Hb, POC 11.6(L) 11.9 - 15.5 g/dL [facility] Blood 06/29/2024 10:3 2 AM FIRST AID OFFICER 06/29/2024 10:32 AM FIRST AID OFFICER us Idris Pickard MD LAB POCT ORDERABLES - DEVICE Final Result Performing Organization Address [facility] Co de Phone Number [facility] [place] [address] * POCT Activated clotting time, low range (06/29/2024 10:26 AM FIRST AID OFFICER) ACT 131 123 - 168 sec POC Performer [id number] [facility] POC Device Number [id number] [facility] Blood 06/29/2024 10:2 6 AM FIRST AID OFFICER 06/29/2024 10:26 AM FIRST AID OFFICER Idris Pickard MD LAB POCT ORDERABLES - DEVICE Final Result Performing Organization Address [facility] [place] [address] * Peripheral IV Catheter (06/29/2024 10:19 AM FIRST AID OFFICER) Narrative Lopez Ferreira MD - 06/29/2024 10:19 AM FIRST AID OFFICER Lopez Ferreira MD 06/29/2024 10:21 AM Peripheral IV Catheter Patient location: OR Staff: Placed by: Resident: Lopez Ferreira MD Preprocedure prep: Prep solution: alcohol PPE: gloves and provider hat/mask PIV line: Laterality: right Site: forearm Catheter size: 18 g Technique: anatomical landmarks and direct visualization Procedure details: good blood return and occlusive dressing applied Number of attempts: 1 Assessment: Events: patient tolerated procedure well with no complications Kulwinder Cantu MD ANESTHESIA ORDERABLES Fi nal Result * Arterial Line (06/29/2024 10:19 AM FIRST AID OFFICER) Lopez Polanco MD - 06/29/2024 10:19 AM FIRST AID OFFICER Lopez Ferreira MD 06/29/2024 10:19 AM Arterial Line Patient location: OR Indication: continuous blood pressure monitoring and blood sampling needed Staff: Supervising provider: Kulwinder Cantu MD Placed by: Resident: Lopez Ferreira MD Procedure prep: Prep solution: chlorhexadine/alcohol Prep: provider hat/mask, sterile gloves, sterile drape and sterile probe cover Skin infiltrated with lidocaine 1%: yes Arterial line: Catheter size: 3 Welsh Catheter length: 8 cm Catheter type: wire-guided catheter Seldinger technique: yes Laterality: left Site: radial artery Line secured: tape and Tegaderm Results: good waveform and good blood return Number of attempts: 1 Assessment: Events: patient tolerated procedure well with no complications Kulwinder Cantu MD ANESTHESIA ORDERABLES Fi nal Result * Airway (06/29/2024 10:18 AM FIRST AID OFFICER) Narrative Lopez Ferreira MD - 06/29/2024 10:18 AM FIRST AID OFFICER Lopez Ferreira MD 06/29/2024 10:19 AM Airway Patient location: OR Urgency: elective Indications for airway management: anesthesia and airway protection Difficult airway: no Staff: Placed by: Resident: Lopez Ferreira MD Emergent airway documentation: Risks and benefits discussed: yes Consent obtained: yes Consent given by: patient Airway prep: Preoxygenated: yes Patient position: sniffing Mask difficulty assessment: 1 - vent by mask Spontaneous ventilation during airway: absent Sedation level during airway: GA Final airway details: Final airway type: endotracheal airway Tube type: ETT ETT size: 7.0 mm Cuffed: yes Technique used for successful ETT placement: video laryngoscopy Devices/Methods used in placement: stylet Insertion site: oral Blade type: Lucas Video blade type: Woods Blade size: 3 Cormack-Lehane (video): grade I - full view of glottis Cuff volume: 10 mL Cuff inflated with: air ETT to lips: 21 cm Placement verified by: auscultation Airway secured with: silk tape Number of attempts: 1 Planned trial extubation: yes Kulwinder Cantu MD ANESTHESIA ORDERABLES Fi nal Result * Prepare RBC: 2 Units (06/29/2024 9:45 AM FIRST AID OFFICER) Product code [id number] [facility] Unit Number [id number] 2-8 [facility] Product Blood Type OPOS CERNER [facility] Dispense Status RETURNED [facility] Product code [id number] Unit Number [id number] 3-J [facility] Product Blood Type OPOS [facility] Dispense Status RETURNED [facility] Blood 06/29/2024 9:45 AM FIRST AID OFFICER 06/29/2024 9:45 AM FIRST AID OFFICER Narrative [facility] - 06/29/2024 3:03 PM FIRST AID OFFICER Are special requirements needed? (All products are leukoreduced and CMV- safe)- >No Date required:-[id number] LRRBC # of [id number] Reasons:-Intra-op transfusion} Kulwinder Cantu MD BLOOD BANK PRODUCT ORDER FELIPA Final Result Performing Organization Address [facility] Co de Phone Number [facility] Department [place] [address] * POC Blood Gas and Chemistries, Arterial - (06/29/2024 8:45 AM FIRST AID OFFICER) Na, POC 141 135 - 145 mmol/L K POC 4.2 3.3 - 4.9 mmol/L [facility] Comment: Interpretive Data Not all point of care methods assess for hemolysis. Confirm with instrument and retest K+ if not consistent with clinical signs and symptoms. Current Interpretive Data was last revised on 2023. Glucose, POC 136 70 - 199 mg/dL [facility] Hct, POC 41.0 36.3 - 45.3 % [facility] Total Hb, POC 13.5 11.9 - 15.5 g/dL [facility] Blood 06/29/2024 8:45 AM FIRST AID OFFICER 06/29/2024 8:45 AM FIRST AID OFFICER us Idris Pickard MD LAB POCT ORDERABLES - DEVICE Final Result Performing Organization Address [facility] Co de Phone Number [facility] Department [place] [address] * Type and screen (06/29/2024 8:25 AM FIRST AID OFFICER) ABO Rh O Positive Naomi, indirect Negative [facility] Blood 06/29/2024 8:25 AM FIRST AID OFFICER 06/29/2024 9:15 AM FIRST AID OFFICER Narrative [facility] - 06/29/2024 9:59 AM FIRST AID OFFICER Has the patient had Daratumumab or Isatuximab in the past 6 months?->Unknown us Kulwinder Cantu MD LAB BLOOD BANK TEST ORDE ADAN Final Result Performing Organization Address City/[facility]/ZIP Co de Phone Number [facility] [place] [address] * Prepare RBC: 2 Units (06/29/2024 8:16 AM FIRST AID OFFICER) Product code [id number] Unit Number [id number] 3-2 [facility] Product Blood Type OPOS [facility] Dispense Status RETURNED [facility] Product code [id number] [facility] Unit Number [id number] 5-8 [facility] Product Blood Type OPOS [facility] Dispense Status RETURNED [facility] Blood 06/29/2024 8:16 AM FIRST AID OFFICER 06/29/2024 8:15 AM FIRST AID OFFICER Narrative [facility] - 06/29/2024 3:03 PM FIRST AID OFFICER Are special requirements needed? (All products are leukoreduced and CMV- safe)- >No Date required:-[id number] LRRBC # of Qwvmb-0-Ykmtr Reasons:-Intra-op transfusion} us Lopez Ferreira MD BLOOD BANK PRODUCT ORDER FELIPA Final Result Performing Organization Address City/[facility]/ZIP Co de Phone Number [facility] [place] [address] * CTA Abdomen Pelvis (06/26/2024 9:11 AM FIRST AID OFFICER) Anatomical Region Laterality Modality Body N/A Computed Tomogra phy 06/26/2024 11:2 8 AM FIRST AID OFFICER Impressions 06/26/2024 11:47 AM FIRST AID OFFICER IMPRESSION: 1. 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 No adjacent inflammatory changes or wall enhancement. Vascular surgery consultation is recommended. 2. 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 Patent aortobifemoral bypass. Dictated by: Kobi Davis M.D. The radiology attending physician has personally reviewed this study, and had reviewed and/or edited this written report and agrees with it. Electronically signed by: Kulwinder Thomson M.D. Narrative 06/26/2024 11:47 AM FIRST AID OFFICER EXAMINATION: CT ANGIOGRAPHY OF THE ABDOMEN AND PELVIS WITH AND WITHOUT CONTRAST HISTORY: Aortobifemoral bypass performed May 2019 with aneurysmal dilatation at the right femoral anastomosis, reassessment. 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 TECHNIQUE: CT angiography of the abdomen and pelvis was performed prior to and following the uneventful intravenous administration of 90 ml Optiray-350 using the post-endoluminal stent graft protocol. Vascular 3D images were generated on a dedicated workstation and also reviewed. COMPARISON: CT chest abdomen pelvis 02/09/2024 FINDINGS: VASCULAR FINDINGS: Extensive ulcerative atherosclerotic disease is present throughout the visualized aorta and its branches. There is no infrarenal abdominal aortic aneurysm. The mohegan infrarenal abdominal aorta is occluded with patent aortobifemoral bypass. No evidence of thrombosis or stenosis. 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 This measures 7.0 x 5.3 x 4.6 cm it entirety, previously measuring 4.1 x 2.6 cm in axial dimensions (series 5, image 358). Opacified lumen measures up to 2.7 cm. No adjacent subcutaneous inflammatory changes are present. No peripheral wall enhancement, and this notably demonstrated no hypermetabolic activity on PET-CT 02/15/2024. No evidence of endoleak. There is subsequent compression of the left superficial femoral artery. 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 The celiac, superior mesentery, and left renal artery are widely patent. Nonopacification of the inferior mesenteric artery. Mild stenosis of the right renal artery at its origin. Accessory right renal artery. NON-VASCULAR FINDINGS: Severe centrilobular pulmonary emphysema. Heart size is normal without pericardial effusion. Dense multivessel coronary arterial atherosclerotic calcifications. Distal esophagus is normal. Hepatic segment 8 simple cyst and a flash filling hemangioma, the latter of which was not well-visualized on 02/09/2024. No acute abnormality throughout the abdomen or pelvis. Osteopenia. Multilevel spinal degenerative changes. L2 vertebral body benign bone island. Procedure Note Kulwinder Thomson MD - 06/26/2024 EXAMINATION: CT ANGIOGRAPHY OF THE ABDOMEN AND PELVIS WITH AND WITHOUT CONTRAST HISTORY: Aortobifemoral bypass performed May 2019 with aneurysmal dilatation at the right femoral anastomosis, reassessment. 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 TECHNIQUE: CT angiography of the abdomen and pelvis was performed prior to and following the uneventful intravenous administration of 90 ml Optiray-350 using the post-endoluminal stent graft protocol. Vascular 3D images were generated on a dedicated workstation and also reviewed. COMPARISON: CT chest abdomen pelvis 02/09/2024 FINDINGS: VASCULAR FINDINGS: Extensive ulcerative atherosclerotic disease is present throughout the visualized aorta and its branches. There is no infrarenal abdominal aortic aneurysm. The mohegan infrarenal abdominal aorta is occluded with patent aortobifemoral bypass. No evidence of thrombosis or stenosis. 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 This measures 7.0 x 5.3 x 4.6 cm it entirety, previously measuring 4.1 x 2.6 cm in axial dimensions (series 5, image 358). Opacified lumen measures up to 2.7 cm. No adjacent subcutaneous inflammatory changes are present. No peripheral wall enhancement, and this notably demonstrated no hypermetabolic activity on PET-CT 02/15/2024. No evidence of endoleak. There is subsequent compression of the left superficial femoral artery. 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 The celiac, superior mesentery, and left renal artery are widely patent. Nonopacification of the inferior mesenteric artery. Mild stenosis of the right renal artery at its origin. Accessory right renal artery. NON-VASCULAR FINDINGS: Severe centrilobular pulmonary emphysema. Heart size is normal without pericardial effusion. Dense multivessel coronary arterial atherosclerotic calcifications. Distal esophagus is normal. Hepatic segment 8 simple cyst and a flash filling hemangioma, the latter of which was not well-visualized on 02/09/2024. No acute abnormality throughout the abdomen or pelvis. Osteopenia. Multilevel spinal degenerative changes. L2 vertebral body benign bone island. IMPRESSION: IMPRESSION: 1. 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 No adjacent inflammatory changes or wall enhancement. Vascular surgery consultation is recommended. 2. 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 Patent aortobifemoral bypass. Dictated by: Kobi Davis M.D. The radiology attending physician has personally reviewed this study, and had reviewed and/or edited this written report and agrees with it. Electronically signed by: Kulwinder Thomson M.D. Idris Pickard MD IMG CT PROCEDURES Final Resul t * (ABNORMAL) eGFR (06/07/2024 11:34 AM FIRST AID OFFICER) eGFR 54(L) >=60 mL/min/1. 73 m2 Comment: Interpretive Data Reference Interval Normal >/= 90 mL/min/1.73m2 Mildly decreased* 60 - 89 mL/min/1.73m2 Mildly to moderately decreased 45 - 59 mL/min/1.73m2 Moderately to severely decreased 30 - 44 mL/min/1.73m2 Severely decreased 15 - 29 mL/min/1.73m2 Kidney Failure < 15 mL/min/1.73m2 *Relative to young adult level Estimated glomerular filtration rate is determined by the 2020 CKD-EPI equation recommended by the National Kidney Foundation (A Unifying Approach to GFR Estimation: Recommendations of the NKF-ASK Task Force on Reassessing the Inclusion of Race in Diagnosing Kidney Disease, JASN 2020). The CKD-EPI equation should not be used for patients with unstable renal function and has not been validated in children and those over 70. Current interpretive data was last reviewed 2021. Testing performed by: [facility], [address] [place] [address] Blood 06/07/2024 11:3 4 AM FIRST AID OFFICER 06/07/2024 11:43 AM FIRST AID OFFICER us Perez Ornelas MD PhD LAB BLOOD ORDERABLES F inal Result [facility] [address] Department [place] [address] * Differential, auto (06/07/2024 11:34 AM FIRST AID OFFICER) Neutrophil abs 5.7 1.5 - 6.5 K/cumm Comment:Testing performed by : [facility], [facility], [address] [place] [address] Imm gran abs 0.0 0.0 - 0.1 K/cumm CERNER [facility] Comment:Testing performed by : [facility], [address] [place] [address] Lymphocyte abs 2.5 0.8 - 3.3 K/cumm CERRAJIV [facility] Comment:Testing performed by : [facility], [address] [place] [address] Monocyte abs 0.6 0.2 - 0.8 K/cumm CERRAJIV [facility] Comment:Testing performed by : [facility], [address] [place] [address] Eosinophil abs 0.1 0.0 - 0.5 K/cumm CERNER [facility] Comment:Testing performed by : [facility], [address] [place] [address] Basophil abs 0.0 0.0 - 0.1 K/cumm CERNER [facility] Comment:Testing performed by : [facility], [address] [place] [address] Neutrophil pct 63.7 % CERNER [facility] Comment: Interpretive Data Percent cell count reference ranges are not reported, since discordance with absolute values may lead to misinterpretation of CBC data. Current Interpretive Data was last revised on 2017. Testing performed by: [facility], [facility], [address] [place] [address] Imm gran pct 0.2 % CERNER [facility] Comment: Interpretive Data Percent cell count reference ranges are not reported, since discordance with absolute values may lead to misinterpretation of CBC data. Current Interpretive Data was last revised on 2017. Testing performed by: [facility], [facility], [address] [place] [address] Lymphocyte pct 28.1 % CERNER [facility] Comment: Interpretive Data Percent cell count reference ranges are not reported, since discordance with absolute values may lead to misinterpretation of CBC data. Current Interpretive Data was last revised on 2017. Testing performed by: [facility], [facility], [address] [place] [address] Monocyte pct 6.7 % CERNER [facility] Comment: Interpretive Data Percent cell count reference ranges are not reported, since discordance with absolute values may lead to misinterpretation of CBC data. Current Interpretive Data was last revised on 2017. Testing performed by: [facility], [facility], [address] [place] [address] Eosinophil pct 1.0 % CERNER [facility] Comment: Interpretive Data Percent cell count reference ranges are not reported, since discordance with absolute values may lead to misinterpretation of CBC data. Current Interpretive Data was last revised on 2017. Testing performed by: [facility], [facility], [address] [place] [address] Basophil pct 0.3 % CERNER [facility] Comment: Interpretive Data Percent cell count reference ranges are not reported, since discordance with absolute values may lead to misinterpretation of CBC data. Current Interpretive Data was last revised on 2017. Testing performed by: [facility], [facility], [address] [place] [address] Blood 06/07/2024 11:3 4 AM FIRST AID OFFICER 06/07/2024 11:35 AM FIRST AID OFFICER Perez Ornelas MD PhD LAB BLOOD ORDERABLES F inal Result [facility]USEPPE [facility] [address] [facility] Department [place] [address] * (ABNORMAL) CBC with auto differential (06/07/2024 11:34 AM FIRST AID OFFICER) WBC 8.9 3.8 - 9.9 K/cumm Comment:Testing performed by : [place] [address], [address] [place] [address] Hgb 12.6 11.9 - 15.5 g/dL GIUSEPPE CR[facility]ERW[facility] Comment:Testing performed by : [place] [address], [address] [place] [address] Hct 37.4 35.6 - 45.5 % GIUSEPPE CRAMERW Comment:Testing performed by : [facility], [address] [place] [address] Plt 211 150 - 400 K/cumm [facility] Comment:Testing performed by : [place] [address], [address] [place] [address] MPV 8.5(L) 9.1 - 12.3 fL GIUSEPPE [facility] Comment:Testing performed by : [facility], [address] [place] [address] RBC 4.60 3.90 - 5.20 M/cumm GIUSEPPE CR[facility]ERWCH Comment:Testing performed by : [facility] 2, [address] [place] [address] MCV 81 81 - 96 fL GIUSEPPE [facility] Comment:Testing performed by : [facility] 2, [address] [place] [address] MCH 27.4 27.1 - 33.3 pg CERRAJIV CRAMERWCH Comment:Testing performed by : [facility], [facility] [address], [address], [place] [address] MCHC 33.7 32.3 - 35.7 g/dL GIUSEPPE BEJARANO Comment:Testing performed by : [facility], [facility] [address], [address], [place] [address] RDW CV 15.1(H) 11.1 - 14.9 % GIUSEPPE BEJARANO Comment:Testing performed by : [facility], [facility] [address], [address], [place] [address] RDW SD 44.8 35.7 - 48.1 fL GIUSEPPE BEJARANO Comment:Testing performed by : [facility], [facility] [address], [address] [place] [address] Blood 06/07/2024 11:3 4 AM FIRST AID OFFICER 06/07/2024 11:35 AM FIRST AID OFFICER Perez Ornelas MD PhD LAB BLOOD ORDERABLES F inal Result [facility] [address] [facility] [place] [address] * TSH (06/07/2024 11:34 AM FIRST AID OFFICER) [facility] Thyroid Stimulating Hormone 1.04 0.30 - 4.20 mcIUnit/mL Comment:Testing performed by : [facility], [address] [place] [address] Blood 06/07/2024 11:3 4 AM FIRST AID OFFICER 06/07/2024 11:43 AM FIRST AID OFFICER Perez Ornelas MD PhD LAB BLOOD ORDERABLES F inal Result GIUSEPPE [facility] [address] [facility] [place] [address] * Comprehensive metabolic panel (06/07/2024 11:34 AM FIRST AID OFFICER) Sodium 140 135 - 145 mmol/L Comment:Testing performed by : [facility], [address], [place] [address] Potassium, pl 3.3 3.3 - 4.9 mmol/L CERNER [facility] Comment:Testing performed by : [facility], [address], [place] [address] Chloride 101 97 - 110 mmol/L C[facility]ER [facility] Comment:Testing performed by : [facility], [address], [place] [address] CO2 25 22 - 32 mmol/L C[facility]ER [facility] Comment:Testing performed by : [facility], [address], [place] [address] Anion gap 14 2 - 15 mmol/L C[facility]ER [facility] Comment:Testing performed by : [facility], [address], [place] [address] BUN 12 6 - 25 mg/dL CERNER [facility] Comment:Testing performed by : [facility], [address], [place] [address] Creatinine 1.05 0.60 - 1.10 mg/dL C[facility]ER [facility] Comment:Testing performed by : [facility], [address], [place] [address] Glucose 152 70 - 199 mg/dL CERNER [facility] Comment: Interpretive Data Fasting glucose >/= 126 mg/dl is diagnostic for diabetes. Fasting is defined as no caloric intake for at least 8 hours. Fasting glucose between 100 mg/dl to 125 mg/dl is diagnostic of prediabetes. In a patient with classic symptoms of hyperglycemia or hyperglycemic crisis, a random glucose >/= 200 mg/dl is diagnostic for diabetes. In the absence of unequivocal hyperglycemia, results should be confirmed by repeat testing. The classification and Diagnosis of Diabetes Diabetes Care 2021; 46: S19-S40. Current interpretive data was last revised 2022. Testing performed by: [facility], [address], [place] [address] Calcium 9.9 8.5 - 10.3 mg/dL CERNER [facility] Comment:Testing performed by : [facility], [address], [place] [address] Bilirubin, total 0.3 0.1 - 1.2 mg/dL C[facility]ER [facility] Comment:Testing performed by : [facility], [address], [place] [address] Protein, pl 7.8 6.5 - 8.5 g/dL C[facility]ER [facility] Comment:Testing performed by : [facility], [address], [place] [address] Albumin 3.8 3.5 - 5.0 g/dL C[facility]ER [facility] Comment:Testing performed by : [facility], [address], [place] [address] Alk phos 91 40 - 130 Units/L CERNER [facility] Comment:Testing performed by : [facility], [address], [place] [address] ALT 7 7 - 45 Units/L CERNER [facility] Comment:Testing performed by : [facility], [address], [place] [address] AST 17 10 - 45 Units/L CERNER [facility] Comment:Testing performed by : [facility], [address], [place] [address] Blood 06/07/2024 11:3 4 AM FIRST AID OFFICER 06/07/2024 11:43 AM FIRST AID OFFICER Perez Ornelas MD PhD LAB BLOOD ORDERABLES F inal Result [facility] [address] [place] [address] from Last 3 Months Insurance MEDICARE SOLUTIONS MEDICARE [facility] MDCR HMO REF MEDICARE MEDICARE [employer] [place] [address] MEDICARE [employer] [place] [id number] MEDICARE MEDICARE Advance Directives For more information, please contact: [phone] * Full Code (Latest Code Status on File) Date Activated Date Inactivated Comments 06/29/2024 4:44 PM 07/03/2024 7:32 PM * Full Code Date Activated Date Inactivated Comments 02/08/2024 8:06 PM 02/17/2024 5:04 PM * Full Code Date Activated Date Inactivated Comments 06/28/2019 2:03 PM 07/06/2019 9:44 PM Care Teams Change Over Relationship Specialty Start Date End Date Avery Persaud MD [address] [place] [address] PCP - General Family Medicine 03/10/22 Perez Ornelas MD PhD Medical Oncologist/[employer] Medical Oncology 09/12/19 Johanna Dumont MD [address] [facility] [place] [address] Radiation Oncologist Radiation Oncology 07/17/20 Rose Marie Schneider MD PhD [address] [place] [address] Consulting Physician Plastic Surgery 07/03/24 Idris Pickard MD [address] [facility] [address] [place] [address] Surgeon Vascular Surgery 07/03/24
--- OUTSIDE RECORDS SUMMARY | 2024-07-25 23:53 | XMS_ITS ---
Author Organization [facility], [facility] Address [address] [place] [address] [address] [place] [address] Care Team Providers Care Primary Class Teacher Name Role Phone Pablo Ochoa MD Primary Care Provider Ángel Fitzpatrick Unavailable [phone] REASON FOR VISIT txt sent to pt - contact [facility] Pharmacy Encounters Encounter Location Date Provider Diagnosis [address] [place] [address] 08/22/2023 Ángel Benjamin Plan Of Treatment No Information Progress Notes * Jeannine BESTB:1945 ( 77 yo F)Acc No.[id number]:08/22/2023 Patient: Mary Crane :1945 A ge:77 Y S ex:Female Address:[address] [place] [address] 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
--- OUTSIDE RECORDS SUMMARY | 2024-07-25 23:53 | XMS_ITS ---
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 EKG no evidence of acute ischemia. Cardiac MRI shows normal cardiac size and function and no delayed gadolinium enhancement suggestive of infiltrate cardiomyopathy or infarct. - CW ASA and statin. Elevated serum creatinine 02/08/2024 Assessment & Plan (02/17/2024 8:46 AM CDT): Resolved. Looks like she has CKD. - creatinine back to baseline, monitor BMP Emphysema lung 02/08/2024 Assessment & Plan (06/29/2024 7:41 AM SHELL GRADER): - Continue home inhalers - SpO2 checks with VS Assessment & Plan (02/08/2024 9:11 PM CDT): Please see SOB section. Atherosclerosis of [place] ar teries of extremities with intermittent claudication, bilateral legs 09/26/2023 Elevated serum creatinine 09/18/2020 Hypercalcemia 09/18/2020 Encounter for surgical after care following surgery on the circulatory system 07/21/2020 Need for immunization against influenza 03/20/20 HTN (hypertension) 10/25/2019 Assessment & Plan (06/29/2024 7:41 AM SHELL GRADER): - Continue home amlodipine as BP tolerates [...] 0 Assessment & Plan (06/29/2024 7:38 AM SHELL GRADER): - Currently undergoing treatment with pembrolizumab. Last cycle 06/07/24 Severe malnutrition (CMS/HCC) 06/29/2019 Assessment & Plan (06/29/2024 7:40 AM SHELL GRADER): Poor appetite at baseline. 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 Likely inflammatory following procedure. Afebrile. - No indication for culture, consider if temp > 38.5 - Periop antibiotics to completion Cavitary lesion of lung 06/28/2019 Assessment & Plan (06/29/2019 4:43 PM SHELL GRADER): Called by radiology yesterday that pt may [...] even Assessment & Plan (06/28/2019 7:36 PM SHELL GRADER): Arrived extubated on simple face mask and [...] 06/28/2019 Assessment & Plan (06/29/2019 4:41 PM SHELL GRADER): Expected post op pain s/p vascular surgery. 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 Currently NPO. - Dilaudid PRN - Transition to PO tylenol and oxycodone when able to take PO Assessment & Plan (06/28/2019 7:36 PM SHELL GRADER): Expected postop pain. Currently NPO. - Dilaudid PRN - Transition to PO tylenol and oxycodone when able to take PO At high risk for peripheral neurovascular dysfun ction 06/28/2019 Assessment & Plan (06/29/2019 7:36 PM SHELL GRADER): S/p aorto bifem bypass, bliat fem endarterectomy, [...] exam Assessment & Plan (06/29/2019 2:20 AM SHELL GRADER): S/p aorto bifem bypass. Preop pt did not have signals to bilateral feet + DP bilateral, unable to obtain PTs, unchanged since OR. - Q1H neurovascular checks - Notify vascular surgery for any changes in exam Assessment & Plan (06/28/2019 7:37 PM SHELL GRADER): S/p aorto bifem bypass. Preop pt did not have signals to bilateral feet. Now with + doppler signal to DP, unable to get signal to PT. - Q1H neurovascular checks - Notify vascular surgery for any changes in exam Acute blood loss anemia 06/28/2019 Assessment & Plan (06/29/2019 4:50 PM SHELL GRADER): Expected following cardiac surgery. No blood products intra op. Hgb stable at 11.0. No pressors. - No indication for transfusion, consider if patient becomes hemodynamically unstable with increased pressor requirements or symptomatic - CBC daily Assessment & Plan (06/28/2019 7:34 PM SHELL GRADER): Post H&H from 13.8/41 preop. No blood [...] changes. Assessment & Plan (06/29/2019 4:42 PM SHELL GRADER): S/p aorto bifem bypass. Postop care to [...] line Assessment & Plan (06/28/2019 7:38 PM SHELL GRADER): S/p aorto bifem bypass. Postop care to include: - Q1H neurovascular checks - Bedrest tonight, HOB 30 degrees or less - ASA and SQH tomorrow - Holding home Plavix - NPO until return of bowel function per vascular - Periop Ancef Current Treatment and Therapy Plans Pembrolizumab 42 Day Cycles starting with cycle 8* Plan Start Date:07/13/2023 Plan Provider:Perez Ornelas MD PhD Linked Problems Non-small cell carcinoma of right lung (HCC) Treatment Medications Current Day (Day 1 , Cycle 11 - Planned for 08/02/2024) Next Day (Day 1, Cycle 12 - Planned for 09/13/2024) pembrolizumab (KEYTRUDA)pembrolizumab (KEYTRUDA) IVPB in 100 mL pembrolizumab (KEYTRUDA) 400 mg in sodium chloride 0.9% 100 mL IVPB pembrolizumab (KEYTRUDA) 400 mg in sodium chloride 0.9% 100 mL IVPB Past Treatment and Therapy Plans Line Care Plan Name Start Date Discontinue Date Treatment Medications Discontinue Reason Plan Provider IV MAINTENANCE THERAPY PLAN 10/04/2019 08/09/2023 No medications scheduled. Automatic discontinuation of dormant plans Perez Ornelas MD PhD Oncology Chemotherapy Treatment Plan Name Start Date Discontinue Date Treatment Medications Discontinue Reason Plan Provider Cycles Pembrolizumab 21 Day Cycles 1 12/03/2021 pembrolizumab (KEYTRUDA)pembr olizumab (KEYTRUDA) IVPB in 100 mL Stable Disease Perez Ornelas MD PhD 22 of 24 cycles started [id number] - [facility] - Lung [facility] ONC - [id number] - Arm 2 - Pembrolizumab Monotherapy 0 08/06/2020 pembrolizumab (KEYTRUDA)pembr olizumab (KEYTRUDA) IVPB in 100 mL Progression Perez Ornelas MD PhD 10 of 12 cycles started Pembrolizumab 21 Day Cycles 10/04/2019 12/26/2019 pembrolizumab (KEYTRUDA)pembr olizumab (KEYTRUDA) IVPB in 100 mL Protocol Amendment/Gayle nge Preez Ornelas MD PhD 4 of 24 cycles started Radiation Treatments * Course C1 RT LUNG 202008/04/2020 - 08/08/2020 Treatment Period Energy Fraction Dose Fractions Total Dose Plans Planned RT UPPER LUNG 08/04/2020 - 08/08/2020 700 5 / 3,500 Reference Points Delivered PTV 08/04/2020 - 08/08/2020 3,500 Lifetime Dose Tracking * Chemical Lifetime Dose Automatic Entry Manual Entr y DLP 4,579 mGycm 4,579 mGycm 0 mGycm
--- OUTSIDE RECORDS SUMMARY | 2024-07-25 23:53 | XMS_ITS | Patient Health Record ---
Author Organization [facility], [facility] Address [address] [place] [address] [place] [address] Care Team Providers Care Potato Chip Sorter Name Role Phone Pablo Ochoa MD Primary Care Provider Ángel Fitzpatrick Unavailable [phone] Reason For Referral No Information Medications Medication SIG (Take, Route, Fr equency, Duration) Notes Start Date End Date Status Suflave 178.7 GM ML Orally twice a day for 1 days 07/29/2023 Active Encounters Encounter Location Date Provider Diagnosis [facility], [address] [place] [id number] 07/29/2023 Ángel Benjamin [facility], [address] [place] [address] 07/29/2023 Ángel Benjamin [facility], [address] [place] [address] 08/22/2023 Ángel Benjamin [facility], [address] [place] [address] 08/23/2023 Ángel Benjamin Plan Of Treatment No Information Insurance Providers Payer Name Payer Address Payer Phone Subscriber Number Group Number Insured Name Patient Relationship to Insured Coverage Start Date Coverage End Date [facility] Medicare Advantage HMO-POS [address] [address] [place] [address] [id number] Mary Best Self - patient is the insured
--- OUTSIDE RECORDS SUMMARY | 2024-07-25 23:53 | XMS_ITS | Referral Summary ---
Author Organization [facility] [address] [place] Address [address] [place] [address] Care Team Providers Care Tank Builder Helper Name Role Phone Perez Ornelas MD PhD Unavailable [phone] Johanna Dumont MD Unavailable [phone] Avery Persaud MD Primary Care Provider [phone] Rose Marie Schneider MD PhD Unavailable [phone] Idris Pickard MD Unavailable [phone] Encounters Date Type Department Care Team Description 07/23/2024 Documentation [facility] Oncology [address] [place] [address] [address] [place] [phone] Diane Osorio, NEHA 07/20/2024 11:45 AM CERTIFIED MEDICAL BILLER Office Visit [facility] Surgery [address] [facility] 6th [place] [address] [place] [address] Rose Marie Schneider MD PhD Femoral artery pseudo-aneurysm, right (HCC) (Primary Dx) 07/20/2024 1:45 PM CERTIFIED MEDICAL BILLER Ancillary Procedure [facility] Vascular Lab at the [facility] [address] [facility] 8th [place] [address] [place] [address] Encounter for surgical aftercare following surgery on the circulatory system; Presence of other vascular implants and grafts 07/19/2024 Orders Only [facility] Oncology [address] [facility] [address] [place] [phone] Diane Osorio, RN Non-small cell carcinoma of right lung (HCC) (Primary Dx) 07/19/2024 11:00 AM CERTIFIED MEDICAL BILLER - 07/19/2024 11:59 PM CERTIFIED MEDICAL BILLER Hospital Encounter [facility] [address] [place] [address] Non-small cell carcinoma of right lung (HCC) Discharge Disposition: Discharge to home or self care 07/09/2024 10:30 AM CERTIFIED MEDICAL BILLER Office Visit [facility] Surgery [address] [facility] 6th [place] [address] [place] [phone] Yaneth Darnell NP Open wound of inguinal region, initial encounter 07/04/2024 Telephone [facility] Surgery [address] [facility] Floor 1 [place] [phone] Idris Pickard MD 07/03/2024 Orders Only [facility] Vascular Surgery [address] [place] [address] Office Building [address] [place] [phone] Idris Pickard MD Encounter for surgical aftercare following surgery on the circulatory system (Primary Dx); Presence of other vascular implants and grafts 06/29/2024 7:46 AM CERTIFIED MEDICAL BILLER - 07/03/2024 3:31 PM CERTIFIED MEDICAL BILLER Hospital Encounter [address] [phone] Idris Pickadr MD Femoral artery pseudo-aneurysm, right (HCC) (Primary Dx) Discharge Disposition: Discharge to home or self care 06/29/2024 9:30 AM CERTIFIED MEDICAL BILLER - 06/29/2024 3:15 PM CERTIFIED MEDICAL BILLER Surgery [facility] Operating Room [address] [place] [phone] Idris Pickard MD REPAIR PSEUDOANEURYSM - FEMORAL 06/29/2024 9:33 AM CERTIFIED MEDICAL BILLER Anesthesia Event [facility] [address] [place] [phone] Kulwinder Cantu MD Nizam, Rasheeq Rahman, MD 06/28/2024 Telephone [facility] Vascular Surgery [address] [place] [address] Medical Office Building 3 [address] [place] [address] Idris Pickard MD 06/28/2024 Telephone [facility] Vascular Surgery [facility] Office Building [address] [place], [place] [address] Idris Pickard MD 06/26/2024 10:30 AM CERTIFIED MEDICAL BILLER Office Visit [facility] Vascular Surgery [address] [facility] Office Building [address] [place] [address] Aisha Chirinos NP Encounter for surgical aftercare following surgery on the circulatory system (Primary Dx) 06/26/2024 9:05 AM CERTIFIED MEDICAL BILLER - 06/26/2024 11:59 PM CERTIFIED MEDICAL BILLER Hospital Encounter [facility] [address] [place], [place] [address] Idris Pickard MD Encounter for surgical aftercare following surgery on the circulatory system Discharge Disposition: Discharge to home or self care 06/08/2024 Telephone [facility] Oncology [address] [place] [address] [address] [place] [phone] Celi Medellin CMA Tramadol 06/07/2024 12:15 PM CERTIFIED MEDICAL BILLER Office Visit [facility] Oncology [address] [place] [address] [address] [place] [phone] Perez Ornelas MD PhD Non-small cell carcinoma of right lung (HCC) (Primary Dx) 06/07/2024 11:15 AM CERTIFIED MEDICAL BILLER Lab [facility] at [address] [place] [address] Non-small cell carcinoma of right lung (HCC) 06/07/2024 12:45 PM CERTIFIED MEDICAL BILLER Infusion [facility] at [address] [place] [address] Non-small cell carcinoma of right lung (HCC) (Primary Dx) 06/01/2024 Orders Only [facility] Surgery [address] [facility] 8th [place] [address] [place] [address] Idris Pickard MD Encounter for surgical aftercare following surgery on the circulatory system (Primary Dx) 05/31/2024 Telephone [facility] Oncology [address] [facility] [address] [place] [address] Carson Butler RN Scheduling Appointments from Last 3 Months Allergies No known active allergies Medications amLODIPine [...] 06/28/2024 Assessment & Plan (07/03/2024 7:25 AM CERTIFIED MEDICAL BILLER): history of bilateral CF, PF, SFA thromboendarterectomy [...] in the liver dome - PT/OT; recommend residential facility - RD consult; started Zyprexa nightly [...] 02/08/2024 Assessment & Plan (06/29/2024 7:41 AM CERTIFIED MEDICAL BILLER): - Continue home inhalers - SpO2 checks with VS Assessment & Plan (02/08/2024 9:11 PM CDT): Please see SOB section. 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 Last cycle 06/07/24 Severe malnutrition (CMS/HCC) 06/29/2019 Assessment & Plan (06/29/2024 7:40 AM CERTIFIED MEDICAL BILLER): Poor appetite at baseline. Started on olanzapine for appetite stimulant per oncology note - Consult floorman - Regular diet + supplements Leukocytosis 06/29/2019 Assessment & Plan (06/29/2019 4:53 PM CERTIFIED MEDICAL BILLER): WBC slightly increased to 16 (13.1). Likely inflammatory following procedure. Afebrile. - No indication for culture, consider if temp > 38.5 - Periop antibiotics to completion Cavitary lesion of lung 06/28/2019 Assessment & Plan (06/29/2019 4:43 PM CERTIFIED MEDICAL BILLER): Called by radiology yesterday that pt may [...] even Assessment & Plan (06/28/2019 7:36 PM CERTIFIED MEDICAL BILLER): Arrived extubated on simple face mask and [...] 06/28/2019 Assessment & Plan (06/29/2019 4:41 PM CERTIFIED MEDICAL BILLER): Expected post op pain s/p vascular surgery. [...] lidocaine patch to back - start Dilaudid ENGINE PILOT 0.2 mg q10 lockout for breakthrough pain 1200: pain more well controlled after pain plan as listed above started, breathing more deeply and cough improved, amb with PT without any pain or respiratory issues Assessment & Plan (06/29/2019 2:19 AM CERTIFIED MEDICAL BILLER): Expected postop pain. Currently NPO. - Dilaudid PRN - Transition to PO tylenol and oxycodone when able to take PO Assessment & Plan (06/28/2019 7:36 PM CERTIFIED MEDICAL BILLER): Expected postop pain. Currently NPO. - Dilaudid PRN - Transition to PO tylenol and oxycodone when able to take PO At high risk for peripheral neurovascular dysfun ction 06/28/2019 Assessment & Plan (06/29/2019 7:36 PM CERTIFIED MEDICAL BILLER): S/p aorto bifem bypass, bliat fem endarterectomy, [...] exam Assessment & Plan (06/29/2019 2:20 AM CERTIFIED MEDICAL BILLER): S/p aorto bifem bypass. Preop pt did not have signals to bilateral feet + DP bilateral, unable to obtain PTs, unchanged since OR. - Q1H neurovascular checks - Notify vascular surgery for any changes in exam Assessment & Plan (06/28/2019 7:37 PM CERTIFIED MEDICAL BILLER): S/p aorto bifem bypass. Preop pt did not have signals to bilateral feet. Now with + doppler signal to DP, unable to get signal to PT. - Q1H neurovascular checks - Notify vascular surgery for any changes in exam Acute blood loss anemia 06/28/2019 Assessment & Plan (06/29/2019 4:50 PM CERTIFIED MEDICAL BILLER): Expected following cardiac surgery. No blood products intra op. Hgb stable at 11.0. No pressors. - No indication for transfusion, consider if patient becomes hemodynamically unstable with increased pressor requirements or symptomatic - CBC daily Assessment & Plan (06/28/2019 7:34 PM CERTIFIED MEDICAL BILLER): Post H&H from 13.8/41 preop. No blood [...] changes. Assessment & Plan (06/29/2019 4:42 PM CERTIFIED MEDICAL BILLER): S/p aorto bifem bypass. Postop care to [...] line Assessment & Plan (06/28/2019 7:38 PM CERTIFIED MEDICAL BILLER): S/p aorto bifem bypass. Postop care to include: - Q1H neurovascular checks - Bedrest tonight, HOB 30 degrees or less - ASA and SQH tomorrow - Holding home Plavix - NPO until return of bowel function per vascular - Periop Ancef Immunizations Immunization Administration Dates Next Due Influenza, Quadrivalent, Griselda l Culture-based MDCK, Preservative Free, Antibiotic Free, Intramuscular 03/20/2020 Social History Tobacco Use Types Packs/Day Years [...] on file Legal Sex Female 12:08 PM CERTIFIED MEDICAL BILLER Gender Identity Not on file Sexual Orientation Not on file Last Filed Vital Signs Vital Sign Reading Time Taken Comments Blood Pressure 120/63 07/03/2024 7:19 AM CERTIFIED MEDICAL BILLER Pulse 84 07/03/2024 7:19 AM CERTIFIED MEDICAL BILLER Temperature 36.8 C (98.2 F) 07/03/2024 7:19 AM CERTIFIED MEDICAL BILLER Respiratory Rate 18 07/03/2024 7:19 AM CERTIFIED MEDICAL BILLER Oxygen Saturation 98% 07/03/2024 7:19 AM CERTIFIED MEDICAL BILLER Inhaled Oxygen Concentration - - Weight 36.3 kg (80 lb 0.4 oz) 06/29/2024 4:42 PM CERTIFIED MEDICAL BILLER Height 165.1 cm (5' 5 ) 06/29/2024 4:42 PM CERTIFIED MEDICAL BILLER Body Mass Index 13.32 06/29/2024 4:42 PM CERTIFIED MEDICAL BILLER Plan of Treatment Not on file Medical Devices Implanted Type Area P[employer] Specialist Device Identifier Shelf Expiration Date Model / Serial / Lot MAD Incubator [id number] Hemashield Gold 14mm 7mm 40cm 2 Velour Knit Sizer Accessory 2 Latex Free - [id number] - [id number] Implanted:Qty: 1 on 06/28/2019 by Idirs Pickard MD at [facility] Graft Bilateral: Abdomen [employer] [id number] 06/29/2021 [id number] / [id number] [employer] Cardio Vascular Gelsoft Plus Vascutek 12/6mm 45cm Main Leg Bore Reduced [id number] - [id number] - [id number] Implanted:Qty: 1 on 06/29/2024 by Idirs Pickard MD at [facility] Graft Right: Femoral [employer] Cardio Vascular 03/29/2026 [id number] / [id number] / Cardiac Stent-11/09/2006 Implanted: 007 (Quantity not on file) Stent Coronary [place] [employer] TAXUS EXPRESS 2 / / Description:Placed in 2006 x1 stent Procedures Procedure Name Priority Date/Time Associated Diagnosis Comments US ARTERIAL DUPLEX LOWER EXTREMITY RIGHT LIMITED Schedule Routine, Read Routine (OP Routine) 07/20/2024 5:05 PM CERTIFIED MEDICAL BILLER Encounter for surgical aftercare following surgery on the circulatory system Presence of other vascular implants and grafts US ARTERIAL DOPPLER LOWER EXTREMITY BILATERAL Schedule Routine, Read Routine (OP Routine) 07/20/2024 5:05 PM CERTIFIED MEDICAL BILLER Encounter for surgical aftercare following surgery on the circulatory system Presence of other vascular implants and grafts CT CHEST W CONTRAST Schedule Routine, Read Routine (OP Routine) 07/19/2024 11:13 AM CERTIFIED MEDICAL BILLER Non-small cell carcinoma of right lung (HCC) EGFR Routine 07/02/2024 9:03 PM CERTIFIED MEDICAL BILLER DIFFERENTIAL AUTO Routine 07/02/2024 9:0 3 PM CERTIFIED MEDICAL BILLER CBC WITH AUTO DIFFERENTIAL Routine 07/02/2024 9:03 PM CERTIFIED MEDICAL BILLER BASIC METABOLIC PANEL Routine 07/02/2024 9:03 PM CERTIFIED MEDICAL BILLER EGFR Timed 07/01/2024 4:52 AM CERTIFIED MEDICAL BILLER CBC WITHOUT DIFFERENTIAL Timed 07/01/2024 4:52 AM CERTIFIED MEDICAL BILLER BASIC METABOLIC PANEL Timed 07/01/2024 4:52 AM CERTIFIED MEDICAL BILLER EGFR Routine 06/29/2024 11:30 PM CERTIFIED MEDICAL BILLER DIFFERENTIAL AUTO Routine 06/29/2024 11: 30 PM CERTIFIED MEDICAL BILLER BASIC METABOLIC PANEL Routine 06/29/2024 11:30 PM CERTIFIED MEDICAL BILLER CBC WITH AUTO DIFFERENTIAL Routine 06/29/2024 11:30 PM CERTIFIED MEDICAL BILLER POCT ACTIVATED CLOTTING TIME, LOW RANGE Routine 06/29/2024 12:56 PM CERTIFIED MEDICAL BILLER POC BLOOD GAS AND CHEMISTRIES, ARTERIAL Routine 06/29/2024 12:51 PM CERTIFIED MEDICAL BILLER POCT ACTIVATED CLOTTING TIME, LOW RANGE Routine 06/29/2024 12:47 PM CERTIFIED MEDICAL BILLER POCT ACTIVATED CLOTTING TIME, LOW RANGE Routine 06/29/2024 12:16 PM CERTIFIED MEDICAL BILLER POCT ACTIVATED CLOTTING TIME, LOW RANGE Routine 06/29/2024 11:51 AM CERTIFIED MEDICAL BILLER TISSUE AEROBIC AND ANAEROBIC CULTURE AND GRAM STAIN Routine 06/29/2024 11:48 AM CERTIFIED MEDICAL BILLER POCT ACTIVATED CLOTTING TIME, LOW RANGE Routine 06/29/2024 11:18 AM CERTIFIED MEDICAL BILLER POC BLOOD GAS AND CHEMISTRIES, ARTERIAL Routine 06/29/2024 10:32 AM CERTIFIED MEDICAL BILLER POCT ACTIVATED CLOTTING TIME, LOW RANGE Routine 06/29/2024 10:26 AM CERTIFIED MEDICAL BILLER PERIPHERAL LINE Routine 06/29/2024 10:19 AM CERTIFIED MEDICAL BILLER ANESTHESIA ARTERIAL LINE PLACEMENT Routine 06/29/2024 10:19 AM CERTIFIED MEDICAL BILLER ANESTHESIA INTUBATION Routine 06/29/2024 10:18 AM CERTIFIED MEDICAL BILLER PREPARE RBC STAT 06/29/2024 9:45 AM CERTIFIED MEDICAL BILLER PEDICLE FLAP - GROIN 06/29/2024 9:33 AM CERTIFIED MEDICAL BILLER Femoral artery pseudo-aneurysm, right (HCC) REPAIR PSEUDOANEURYSM - FEMORAL 06/29/2024 9:33 AM CERTIFIED MEDICAL BILLER Femoral artery pseudo-aneurysm, right (HCC) POC BLOOD GAS AND CHEMISTRIES, ARTERIAL Routine 06/29/2024 8:45 AM CERTIFIED MEDICAL BILLER TYPE AND SCREEN Timed 06/29/2024 8:25 AM CERTIFIED MEDICAL BILLER PREPARE RBC Timed 06/29/2024 8:16 AM CERTIFIED MEDICAL BILLER CTA ABDOMEN PELVIS W WO CONTRAST Schedule Routine, Read Routine (OP Routine) 06/26/2024 9:11 AM CERTIFIED MEDICAL BILLER Encounter for surgical aftercare following surgery on the circulatory system EGFR STAT 06/07/2024 11:34 AM CERTIFIED MEDICAL BILLER Non-small cell carcinoma of right lung (HCC) DIFFERENTIAL AUTO Routine 06/07/2024 11: 34 AM CERTIFIED MEDICAL BILLER Non-small cell carcinoma of right lung (HCC) CBC WITH AUTO DIFFERENTIAL Routine 06/07/2024 11:34 AM CERTIFIED MEDICAL BILLER Non-small cell carcinoma of right lung (HCC) COMPREHENSIVE METABOLIC PANEL STAT 06/07/2024 11:34 AM CERTIFIED MEDICAL BILLER Non-small cell carcinoma of right lung (HCC) TSH Routine 06/07/2024 11:34 AM CERTIFIED MEDICAL BILLER Non-small cell carcinoma of right lung (HCC) from Last 3 Months Results * US Arterial Duplex Lower Extremity Right Limited (07/20/2024 5:05 PM CERTIFIED MEDICAL BILLER) Anatomical Region Laterality Modality Vascular Right Ultrasound 07/20/2024 1:16 PM CERTIFIED MEDICAL BILLER Narrative 07/20/2024 9:43 PM CERTIFIED MEDICAL BILLER [facility] - Department of Vascular Surgery, Vascular Laboratory [address] [place] [address] Lower Extremity Arterial Duplex - Bypass Graft Report Patient Name: MARY HEDRICK : 1945 Study Date: 07/20/2024 1:16:44 PM Gender: F Tech: ANSON Location: [facility] Provider: IDRIS PICKARD Quality: Adequate Order [...] 19 cm/s Right Value Units FINDINGS: Performing Teller Coordinator: Brenda Cat RVT. Right Leg: The distal [...] Idris Pickard MD FACS 07/20/2024 9:43:32 PM CERTIFIED MEDICAL BILLER Procedure Note Idris Pickard MD - 07/20/2024 [facility] - Department of Vascular Surgery,Vascular Laboratory [address] [place] [address] Lower Extremity Arterial Duplex - Bypass Graft Report Patient Name: MARY HEDRICK : 1945 Study Date: 07/20/2024 1:16:44 PM Gender: F Tech: MK Location: [facility] Ref Provider: IDRIS PICKARD Quality: Adequate Order [...] 19 cm/s Right Value Units FINDINGS: Performing Teller Coordinator: Brenda Cat RVT. Right Leg: The distal [...] Electronically Signed By: Idris Pickard MD [facility] 07/20/2024 9:43:32 PM CERTIFIED MEDICAL BILLER us Idris Pickard MD IMG US PROCEDURES Final Resul t * US Arterial Doppler Lower Extremity Bilateral (07/20/2024 5:05 PM CERTIFIED MEDICAL BILLER) Anatomical Region Laterality Modality Vascular Bilateral Ultrasound 07/20/2024 1:42 PM CERTIFIED MEDICAL BILLER Narrative 07/20/2024 11:08 PM CERTIFIED MEDICAL BILLER [facility] - Department of Vascular Surgery, Vascular Laboratory [address] [place] [address] Lower Extremity Arterial Doppler Report Patient Name: MARY HEDRICK : 1945 Study Date: 07/20/2024 1:42:00 PM Gender: F Tech: Brenda Cat RVT Location: [facility] Provider: IDRIS PICKARD Quality: Adequate Order [...] mmHg Lt Brachial Pressure 149 mmHg Rt SANITARIAN AIDE Pressure absent- confirmed Duplex mmHg Lt SANITARIAN AIDE Pressure 118 mmHg Rt DPA Pressure 97 mmHg Lt DPA Pressure 106 mmHg Rt 1st Digit Pressure 56 mmHg Lt 1st Digit Pressure 78 mmHg Rt PT JOSE Resting not applicable Lt PT JOSE Resting 0.77 Rt AT JOSE Resting 0.63 Lt AT JOSE Resting 0.69 Rt Digit/Arm Index 0.37 Lt Digit/Arm Index 0.51 Right Value Units Left Value Units FINDINGS: Performing Teller Coordinator: Brenda Cat RVT. Right Common Femoral Artery [...] Idris Pickard MD FACS 07/20/2024 9:49:06 PM CERTIFIED MEDICAL BILLER Procedure Note Idris Pickard MD - 07/20/2024 [facility] - Department of Vascular Surgery,Vascular Laboratory [address] [place] [address] Lower Extremity Arterial Doppler Report Patient Name: MARY HEDRICK : 1945 Study Date: 07/20/2024 1:42:00 PM Gender: F Tech: EmoryBrenda [facility] Location: [facility] Provider: IDRIS PICKARD Quality: Adequate Order [...] mmHg Lt Brachial Pressure 149 mmHg Rt SANITARIAN AIDE Pressure absent- confirmed Duplex mmHg Lt SANITARIAN AIDE Pressure 118 mmHg Rt DPA Pressure 97 mmHg Lt DPA Pressure 106 mmHg Rt 1st Digit Pressure 56 mmHg Lt 1st Digit Pressure 78 mmHg Rt PT JOSE Resting not applicable Lt PT JOSE Resting 0.77 Rt AT JOSE Resting 0.63 Lt AT JOSE Resting 0.69 Rt Digit/Arm Index 0.37 Lt Digit/Arm Index 0.51 Right Value Units Left Value Units FINDINGS: Performing Teller Coordinator: Brenda Cat RVT. Right Common Femoral Artery [...] Electronically Signed By: Idris Pickard MD [facility] 07/20/2024 9:49:06 PM CERTIFIED MEDICAL BILLER us Idris Pickard MD IMG US PROCEDURES Final Resul t * CT chest with contrast (07/19/2024 11:13 AM CERTIFIED MEDICAL BILLER) Anatomical Region Laterality Modality Body N/A Computed Tomogra phy 07/19/2024 11:2 7 AM CERTIFIED MEDICAL BILLER Impressions 07/19/2024 11:27 AM CERTIFIED MEDICAL BILLER 1. Stable exam without disease progression in the chest. Electronically signed by: Jason Palacios M.D. Narrative 07/19/2024 11:27 AM CERTIFIED MEDICAL BILLER EXAMINATION: Computed tomography of the chest with [...] Result * (ABNORMAL) eGFR (07/02/2024 9:03 PM CERTIFIED MEDICAL BILLER) eGFR 55(L) >=60 mL/min/1. 73 m2 Comment: [...] last reviewed 2021. Blood 07/02/2024 9:03 PM CERTIFIED MEDICAL BILLER 07/02/2024 9:34 PM CERTIFIED MEDICAL BILLER us Crista Lane NP LAB BLOOD ORDERABLES F inal Result [facility] Department [place] [address] * Differential, auto (07/02/2024 9:03 PM CERTIFIED MEDICAL BILLER) Neutrophil abs 6.0 1.5 - 6.5 K/cumm Imm gran abs 0.0 0.0 - 0.1 K/cumm [facility] Lymphocyte abs 1.4 0.8 - 3.3 K/cumm [facility] Monocyte abs 0.6 0.2 - 0.8 K/cumm [facility] Eosinophil abs 0.1 0.0 - 0.5 K/cumm [facility] Basophil abs 0.0 0.0 - 0.1 K/cumm [facility] Neutrophil pct 73.3 % [facility] Comment: Interpretive Data Percent cell count reference ranges are not reported, since discordance with absolute values may lead to misinterpretation of CBC data. Current Interpretive Data was last revised on 2017. Imm gran pct 0.5 % [facility] Comment: Interpretive Data Percent cell count reference ranges are not reported, since discordance with absolute values may lead to misinterpretation of CBC data. Current Interpretive Data was last revised on 2017. Lymphocyte pct 17.6 % [facility] Comment: Interpretive Data Percent cell count reference ranges are not reported, since discordance with absolute values may lead to misinterpretation of CBC data. Current Interpretive Data was last revised on 2017. Monocyte pct 7.5 % [facility] Comment: Interpretive Data Percent cell count reference ranges are not reported, since discordance with absolute values may lead to misinterpretation of CBC data. Current Interpretive Data was last revised on 2017. Eosinophil pct 1.0 % [facility] Comment: Interpretive Data Percent cell count reference ranges are not reported, since discordance with absolute values may lead to misinterpretation of CBC data. Current Interpretive Data was last revised on 2017. Basophil pct 0.1 % [facility] Comment: Interpretive Data Percent cell count reference ranges are not reported, since discordance with absolute values may lead to misinterpretation of CBC data. Current Interpretive Data was last revised on 2017. Blood 07/02/2024 9:03 PM CERTIFIED MEDICAL BILLER 07/02/2024 9:36 PM CERTIFIED MEDICAL BILLER us Crista Lane NP LAB BLOOD ORDERABLES F inal Result [facility] Department [place] [address] * (ABNORMAL) CBC with auto differential (07/02/2024 9:03 PM CERTIFIED MEDICAL BILLER) WBC 8.2 3.8 - 9.9 K/cumm Hgb 8.4(L) 11.9 - 15.5 g/dL [facility] Hct 24.3(L) 35.6 - 45.5 % [facility] Plt 220 150 - 400 K/cumm [facility] MPV 9.7 9.1 - 12.3 fL [facility] RBC 3.07(L) 3.90 - 5.20 M/cumm [facility] MCV 79.2(L) 81.3 - 96.4 fL [facility] MCH 27.4 27.1 - 33.3 pg [facility] MCHC 34.6 32.3 - 35.7 g/dL [facility] RDW CV 15.9(H) 11.1 - 14.9 % [facility] RDW SD 46.0 35.7 - 48.1 fL [facility] NRBC abs 0.00 0.00 - 0.01 K/cumm [facility] Blood 07/02/2024 9:03 PM CERTIFIED MEDICAL BILLER 07/02/2024 9:36 PM CERTIFIED MEDICAL BILLER Crista Lane NP LAB BLOOD ORDERABLES F inal Result Performing Organization Address City/[facility] [address]/ZIP Co de Phone Number [facility] Department [place] [address] * Basic metabolic panel (07/02/2024 9:03 PM CERTIFIED MEDICAL BILLER) [facility] Sodium 139 135 - 145 mmol/L Potassium, pl 3.4 3.3 - 4.9 mmol/L [facility] Chloride 100 97 - 110 mmol/L [facility] CO2 30 22 - 32 mmol/L [facility] Anion gap 9 2 - 15 mmol/L [facility] BUN 14 6 - 25 mg/dL [facility] Creatinine 1.03 0.60 - 1.10 mg/dL [facility] Glucose 105 70 - 199 mg/dL [facility] Comment: Interpretive Data Fasting glucose >/= 126 [...] 2022. Calcium 8.5 8.5 - 10.3 mg/dL [facility] Blood 07/02/2024 9:03 PM CERTIFIED MEDICAL BILLER 07/02/2024 9:34 PM CERTIFIED MEDICAL BILLER Crista Lane NP LAB BLOOD ORDERABLES F inal Result Performing Organization Address City/[facility] [address]/ZIP Co de Phone Number [facility] Department [place] [address] * (ABNORMAL) eGFR (07/01/2024 4:52 AM CERTIFIED MEDICAL BILLER) Pathologist [facility] eGFR 58(L) >=60 mL/min/1. 73 m2 Comment: [...] last reviewed 2021. Blood 07/01/2024 4:52 AM CERTIFIED MEDICAL BILLER 07/01/2024 5:53 AM CERTIFIED MEDICAL BILLER us Vasiliy Ramirez MD LAB BLOOD ORDERABLES Fin al Result [facility] [place] [address] * (ABNORMAL) CBC without differential (07/01/2024 4:52 AM CERTIFIED MEDICAL BILLER) [facility] WBC 12.4(H) 3.8 - 9.9 K/cumm Hgb 9.8(L) 11.9 - 15.5 g/dL [facility] Hct 29.2(L) 35.6 - 45.5 % [facility] Plt 216 150 - 400 K/cumm [facility] MPV 9.9 9.1 - 12.3 fL [facility] RBC 3.62(L) 3.90 - 5.20 M/cumm [facility] MCV 80.7(L) 81.3 - 96.4 fL [facility] MCH 27.1 27.1 - 33.3 pg [facility] MCHC 33.6 32.3 - 35.7 g/dL [facility] RDW CV 15.9(H) 11.1 - 14.9 % [facility] RDW SD 47.0 35.7 - 48.1 fL [facility] NRBC abs 0.00 0.00 - 0.01 K/cumm [facility] Blood 07/01/2024 4:52 AM CERTIFIED MEDICAL BILLER 07/01/2024 5:53 AM CERTIFIED MEDICAL BILLER us Vasiliy Ramirez MD LAB BLOOD ORDERABLES Fin al Result [facility] Department [place] [address] * Basic metabolic panel (07/01/2024 4:52 AM CERTIFIED MEDICAL BILLER) Sodium 137 135 - 145 mmol/L Potassium, pl 3.7 3.3 - 4.9 mmol/L [facility] Chloride 101 97 - 110 mmol/L [facility] CO2 30 22 - 32 mmol/L [facility] Anion gap 6 2 - 15 mmol/L [facility] BUN 9 6 - 25 mg/dL [facility] Creatinine 0.99 0.60 - 1.10 mg/dL [facility] Glucose 97 70 - 199 mg/dL [facility] Comment: Interpretive Data Fasting glucose >/= 126 [...] 2022. Calcium 8.6 8.5 - 10.3 mg/dL [facility] Blood 07/01/2024 4:52 AM CERTIFIED MEDICAL BILLER 07/01/2024 5:53 AM CERTIFIED MEDICAL BILLER Vasiliy Ramirez MD LAB BLOOD ORDERABLES Fin al Result Performing Organization Address [facility] Co de Phone Number [facility] [place] [address] * eGFR (06/29/2024 11:30 PM CERTIFIED MEDICAL BILLER) eGFR 69 >=60 mL/min/1. 73 m2 Comment: [...] reviewed 2021. Blood 06/29/2024 11:3 0 PM CERTIFIED MEDICAL BILLER 06/30/2024 12:53 AM CERTIFIED MEDICAL BILLER us Idris Pickard MD LAB BLOOD ORDERABLES Final Re sult Performing Organization Address City/[facility] [address]/ZIP Co de Phone Number [facility] Department [place] [address] * (ABNORMAL) Differential, auto (06/29/2024 11:30 PM CERTIFIED MEDICAL BILLER) Neutrophil abs 9.7(H) 1.5 - 6.5 K/cumm Imm gran abs 0.0 0.0 - 0.1 K/cumm [facility] Lymphocyte abs 0.8 0.8 - 3.3 K/cumm [facility] Monocyte abs 0.7 0.2 - 0.8 K/cumm [facility] Eosinophil abs 0.0 0.0 - 0.5 K/cumm [facility] Basophil abs 0.0 0.0 - 0.1 K/cumm [facility] Neutrophil pct 86.5 % [facility] Comment: Interpretive Data Percent cell count reference ranges are not reported, since discordance with absolute values may lead to misinterpretation of CBC data. Current Interpretive Data was last revised on 2017. Imm gran pct 0.4 % [facility] Comment: Interpretive Data Percent cell count reference ranges are not reported, since discordance with absolute values may lead to misinterpretation of CBC data. Current Interpretive Data was last revised on 2017. Lymphocyte pct 7.0 % [facility] Comment: Interpretive Data Percent cell count reference ranges are not reported, since discordance with absolute values may lead to misinterpretation of CBC data. Current Interpretive Data was last revised on 2017. Monocyte pct 6.0 % [facility] Comment: Interpretive Data Percent cell count reference ranges are not reported, since discordance with absolute values may lead to misinterpretation of CBC data. Current Interpretive Data was last revised on 2017. Eosinophil pct 0.0 % [facility] Comment: Interpretive Data Percent cell count reference ranges are not reported, since discordance with absolute values may lead to misinterpretation of CBC data. Current Interpretive Data was last revised on 2017. Basophil pct 0.1 % [facility] Comment: Interpretive Data Percent cell count reference ranges are not reported, since discordance with absolute values may lead to misinterpretation of CBC data. Current Interpretive Data was last revised on 2017. Blood 06/29/2024 11:3 0 PM CERTIFIED MEDICAL BILLER 06/30/2024 12:53 AM CERTIFIED MEDICAL BILLER us Idris Pickard MD LAB BLOOD ORDERABLES Final Re sult [facility] Department [place] [address] * (ABNORMAL) CBC with auto differential (06/29/2024 11:30 PM CERTIFIED MEDICAL BILLER) [facility] WBC 11.3(H) 3.8 - 9.9 K/cumm Hgb 10.6(L) 11.9 - 15.5 g/dL [facility] Hct 31.4(L) 35.6 - 45.5 % [facility] Plt 249 150 - 400 K/cumm [facility] MPV 9.9 9.1 - 12.3 fL [facility] RBC 3.89(L) 3.90 - 5.20 M/cumm [facility] MCV 80.7(L) 81.3 - 96.4 fL [facility] MCH 27.2 27.1 - 33.3 pg [facility] MCHC 33.8 32.3 - 35.7 g/dL [facility] RDW CV 15.8(H) 11.1 - 14.9 % [facility] RDW SD 46.3 35.7 - 48.1 fL [facility] NRBC abs 0.00 0.00 - 0.01 K/cumm [facility] Blood 06/29/2024 11:3 0 PM CERTIFIED MEDICAL BILLER 06/30/2024 12:53 AM CERTIFIED MEDICAL BILLER us Idris Pickard MD LAB BLOOD ORDERABLES Final Re sult [facility] Department [place] [address] * Basic metabolic panel (06/29/2024 11:30 PM CERTIFIED MEDICAL BILLER) [facility] Sodium 141 135 - 145 mmol/L Potassium, pl 3.7 3.3 - 4.9 mmol/L [facility] Chloride 104 97 - 110 mmol/L [facility] CO2 28 22 - 32 mmol/L [facility] Anion gap 9 2 - 15 mmol/L [facility] BUN 8 6 - 25 mg/dL [facility] Creatinine 0.85 0.60 - 1.10 mg/dL [facility] Glucose 120 70 - 199 mg/dL [facility] Comment: Interpretive Data Fasting glucose >/= 126 [...] 2022. Calcium 8.7 8.5 - 10.3 mg/dL [facility] Blood 06/29/2024 11:3 0 PM CERTIFIED MEDICAL BILLER 06/30/2024 12:53 AM CERTIFIED MEDICAL BILLER Idris Pickard MD LAB BLOOD ORDERABLES Final Re sult Performing Organization Address City/[facility] [address] [facility]/ZIP Co de Phone Number [facility] Department [place] [address] * POCT Activated clotting time, low range (06/29/2024 12:56 PM CERTIFIED MEDICAL BILLER) Pathologist [facility] [place] ACT 137 123 - 168 sec POC Performer [id number] [facility] POC Device Number [id number] [facility] Blood 06/29/2024 12:5 6 PM CERTIFIED MEDICAL BILLER 06/29/2024 12:56 PM CERTIFIED MEDICAL BILLER us Idris Pickard MD LAB POCT ORDERABLES - DEVICE Final Result Performing Organization Address City/[facility] [address] [facility]/ZIP Co de Phone Number [facility] [place] [address] * (ABNORMAL) POC Blood Gas and Chemistries, Arterial - (06/29/2024 12:51 PM CERTIFIED MEDICAL BILLER) Pathologist [facility] [place] pH, Art POC 7.37 7.35 - 7.45 pCO2, Art POC 43 35 - 45 mmHg [facility] pO2, Art POC 216(H) 83 - 108 mmHg [facility] Na, POC 139 135 - 145 mmol/L [facility] K POC 3.5 3.3 - 4.9 mmol/L [facility] Comment: Interpretive Data Not all point of care methods assess for hemolysis. Confirm with instrument and retest K+ if not consistent with clinical signs and symptoms. Current Interpretive Data was last revised on 2023. Cl, POC 111(H) 97 - 110 mmol/L [facility] Ionized Ca, POC 4.85 4.50 - 5.10 mg/dL [facility] Glucose, POC 115 70 - 199 mg/dL [facility] Lactate, POC 2.9(H) 0.7 - 2.0 mmol/L [facility] SO2 (ophelia) arterial 100(H) 90 - 95 % [facility] Base excess, POC -0.5 mmol/L [facility] HCO3, Art POC 25 20 - 30 mmol/L [facility] Hct, POC 27.0(L) 36.3 - 45.3 % [facility] Total Hb, POC 9.1(L) 11.9 - 15.5 g/dL [facility] Blood 06/29/2024 12:5 1 PM CERTIFIED MEDICAL BILLER 06/29/2024 12:51 PM CERTIFIED MEDICAL BILLER us Idris Pickard MD LAB POCT ORDERABLES - DEVICE Final Result Performing Organization Address [facility] Co de Phone Number [facility] Department [place] [address] * (ABNORMAL) POCT Activated clotting time, low range (06/29/2024 12:47 PM CERTIFIED MEDICAL BILLER) ACT 170(H) 123 - 168 sec POC Performer [id number] [facility] POC Device Number [id number] [facility] Blood 06/29/2024 12:4 7 PM CERTIFIED MEDICAL BILLER 06/29/2024 12:47 PM CERTIFIED MEDICAL BILLER us Idris Pickard MD LAB POCT ORDERABLES - DEVICE Final Result Performing Organization Address City/State/[facility] de Phone Number [facility] [place] [address] * (ABNORMAL) POCT Activated clotting time, low range (06/29/2024 12:16 PM CERTIFIED MEDICAL BILLER) ACT 231(H) 123 - 168 sec POC Performer [id number] [facility] POC Device Number [id number] [facility] Blood 06/29/2024 12:1 6 PM CERTIFIED MEDICAL BILLER 06/29/2024 12:16 PM CERTIFIED MEDICAL BILLER us Idris Pickard MD LAB POCT ORDERABLES - DEVICE Final Result Performing Organization Address [facility] de Phone Number [facility] [place] [address] * (ABNORMAL) POCT Activated clotting time, low range (06/29/2024 11:51 AM CERTIFIED MEDICAL BILLER) ACT 285(H) 123 - 168 sec POC Performer [id number] [facility] POC Device Number [id number] [facility] Blood 06/29/2024 11:5 1 AM CERTIFIED MEDICAL BILLER 06/29/2024 11:51 AM CERTIFIED MEDICAL BILLER us Idris Pickard MD LAB POCT ORDERABLES - DEVICE Final Result Performing Organization Address [facility] [address] [facility] de Phone Number [facility] [place] [address] * Tissue aerobic and anaerobic culture and gram stain Tissue Groin, right (06/29/2024 11:48 AM CERTIFIED MEDICAL BILLER) Direct Specimen Exam Stain: Abundant polymorphonuclear leukocytes seen. No organisms seen. Report Final Report: No growth [facility] Tissue (Groin, right) 06/29/2024 11:48 AM CERTIFIED MEDICAL BILLER 06/29/2024 3:25 PM CERTIFIED MEDICAL BILLER Narrative [facility] - 07/02/2024 11:12 AM CERTIFIED MEDICAL BILLER Right Femoral Artery Pseudoaneurysm Testing performed by [facility] ([phone]) Specimens submitted from normally sterile body sites [...] OR DERABLES Final Result Performing Organization Address City/[facility] [address]/ZIP Co de Phone Number [facility] Department [place] [address] * (ABNORMAL) POCT Activated clotting time, low range (06/29/2024 11:18 AM CERTIFIED MEDICAL BILLER) Pathologist [facility] [place] ACT 318(H) 123 - 168 sec POC Performer [id number] [facility] POC Device Number [id number] [facility] Blood 06/29/2024 11:1 8 AM CERTIFIED MEDICAL BILLER 06/29/2024 11:18 AM CERTIFIED MEDICAL BILLER us Idris Pickard MD LAB POCT ORDERABLES - DEVICE Final Result Performing Organization Address [facility] [address] [facility] Co de Phone Number [facility] [place] [address] * (ABNORMAL) POC Blood Gas and Chemistries, Arterial - (06/29/2024 10:32 AM CERTIFIED MEDICAL BILLER) pH, Art POC 7.44 7.35 - 7.45 pCO2, Art POC 36 35 - 45 mmHg [facility] pO2, Art POC 296(H) 83 - 108 mmHg [facility] Na, POC 139 135 - 145 mmol/L [facility] K POC 3.0(L) 3.3 - 4.9 mmol/L [facility] Comment: Interpretive Data Not all point of care methods assess for hemolysis. Confirm with instrument and retest K+ if not consistent with clinical signs and symptoms. Current Interpretive Data was last revised on 2023. Cl, POC 109 97 - 110 mmol/L [facility] Ionized Ca, POC 4.72 4.50 - 5.10 mg/dL [facility] Glucose, POC 126 70 - 199 mg/dL [facility] Lactate, POC 1.3 0.7 - 2.0 mmol/L [facility] SO2 (ophelia) arterial 100(H) 90 - 95 % [facility] Base excess, POC 0.6 mmol/L [facility] HCO3, Art POC 26 20 - 30 mmol/L [facility] Hct, POC 35.0(L) 36.3 - 45.3 % [facility] Total Hb, POC 11.6(L) 11.9 - 15.5 g/dL [facility] Blood 06/29/2024 10:3 2 AM CERTIFIED MEDICAL BILLER 06/29/2024 10:32 AM CERTIFIED MEDICAL BILLER us Idris Pickard MD LAB POCT ORDERABLES - DEVICE Final Result Performing Organization Address City/[facility]/ZIP Co de Phone Number [facility] Department [place] [address] * POCT Activated clotting time, low range (06/29/2024 10:26 AM CERTIFIED MEDICAL BILLER) ACT 131 123 - 168 sec POC Performer [id number] [facility] POC Device Number [id number] [facility] Blood 06/29/2024 10:2 6 AM CERTIFIED MEDICAL BILLER 06/29/2024 10:26 AM CERTIFIED MEDICAL BILLER us Idris Pickard MD LAB POCT ORDERABLES - DEVICE Final Result [facility] [place] [address] * Peripheral IV Catheter (06/29/2024 10:19 AM CERTIFIED MEDICAL BILLER) Narrative Lopez Ferreira MD - 06/29/2024 10:19 AM CERTIFIED MEDICAL BILLER Lopez Ferreira MD 06/29/2024 10:21 AM Peripheral [...] Result * Arterial Line (06/29/2024 10:19 AM CERTIFIED MEDICAL BILLER) Lopez Polanco MD - 06/29/2024 10:19 AM CERTIFIED MEDICAL BILLER Lopez Ferreira MD 06/29/2024 10:19 AM Arterial Line Patient location: [place] Indication: continuous blood pressure monitoring and blood sampling needed Staff: Supervising provider: Kulwinder Cantu MD Placed by: Resident: Lopez Ferreira MD Procedure prep: Prep solution: chlorhexadine/alcohol Prep: provider hat/mask, sterile gloves, sterile drape and sterile probe cover Skin infiltrated with lidocaine 1%: yes Arterial line: Catheter size: 3 Bel[place]ian Catheter length: 8 cm Catheter type: wire-guided catheter Seldinger technique: yes Laterality: left Site: radial artery Line secured: tape and Tegaderm Results: good waveform and good blood return Number of attempts: 1 Assessment: Events: patient tolerated procedure well with no complications Kulwinder Cantu MD ANESTHESIA ORDERABLES Fi nal Result * Airway (06/29/2024 10:18 AM CERTIFIED MEDICAL BILLER) Lopez Polanco MD - 06/29/2024 10:18 AM CERTIFIED MEDICAL BILLER Lopez Ferreira MD 06/29/2024 10:19 AM Airway [...] of attempts: 1 Planned trial extubation: yes us Kulwinder Cantu MD ANESTHESIA ORDERABLES Fi nal Result * Prepare RBC: 2 Units (06/29/2024 9:45 AM CERTIFIED MEDICAL BILLER) Product code [id number] [facility] Unit Number [id number] 2-8 [facility] Product Blood Type OPOS [facility] Dispense Status RETURNED [facility] Product code [id number] Unit Number [id number] 3-J [facility] Product Blood Type OPOS [facility] Dispense Status RETURNED [facility] Blood 06/29/2024 9:45 AM CERTIFIED MEDICAL BILLER 06/29/2024 9:45 AM CERTIFIED MEDICAL BILLER Narrative [facility] - 06/29/2024 3:03 PM CERTIFIED MEDICAL BILLER Are special requirements needed? (All products are leukoreduced and CMV- safe)- >No Date required:-[id number] LRRBC # of [id number] Reasons:-Intra-op transfusion} us Kulwinder Cantu MD BLOOD BANK PRODUCT ORDER FELIPA Final Result [facility] Department [place] [address] * POC Blood Gas and Chemistries, Arterial - (06/29/2024 8:45 AM CERTIFIED MEDICAL BILLER) Na, POC 141 135 - 145 mmol/L K POC 4.2 3.3 - 4.9 mmol/L [facility] Comment: Interpretive Data Not all point of care methods assess for hemolysis. Confirm with instrument and retest K+ if not consistent with clinical signs and symptoms. Current Interpretive Data was last revised on 2023. Glucose, POC 136 70 - 199 mg/dL [facility] Hct, POC 41.0 36.3 - 45.3 % [facility] Total Hb, POC 13.5 11.9 - 15.5 g/dL [facility] Blood 06/29/2024 8:45 AM CERTIFIED MEDICAL BILLER 06/29/2024 8:45 AM CERTIFIED MEDICAL BILLER Idris Pickard MD LAB POCT ORDERABLES - DEVICE Final Result Performing Organization Address City/[facility]/ZIP Co de Phone Number [facility] Department [place] [address] * Type and screen (06/29/2024 8:25 AM CERTIFIED MEDICAL BILLER) Pathologist [facility] [place] ABO Rh O Positive Naomi, indirect Negative [facility] Blood 06/29/2024 8:25 AM CERTIFIED MEDICAL BILLER 06/29/2024 9:15 AM CERTIFIED MEDICAL BILLER Narrative [facility] - 06/29/2024 9:59 AM CERTIFIED MEDICAL BILLER Has the patient had Daratumumab or Isatuximab in the past 6 months?->Unknown Kulwinder Cantu MD LAB BLOOD BANK TEST ORDE RABLES Final Result [facility] Department [place] [address] * Prepare RBC: 2 Units (06/29/2024 8:16 AM CERTIFIED MEDICAL BILLER) Product code [id number] Unit Number [id number] 3-2 [facility] Product Blood Type OPOS [facility] Dispense Status RETURNED [facility] Product code [id number] [facility] Unit Number [id number] 5-8 [facility] Product Blood Type OPOS [facility] Dispense Status RETURNED [facility] Blood 06/29/2024 8:16 AM CERTIFIED MEDICAL BILLER 06/29/2024 8:15 AM CERTIFIED MEDICAL BILLER Narrative [facility] - 06/29/2024 3:03 PM CERTIFIED MEDICAL BILLER Are special requirements needed? (All products are leukoreduced and CMV- safe)- >No Date required:-[id number] LRRBC # of [id number] Reasons:-Intra-op transfusion} us Lopez Ferreira MD BLOOD BANK PRODUCT ORDER FELIPA Final Result [facility] [place] [address] * CTA Abdomen Pelvis (06/26/2024 9:11 AM CERTIFIED MEDICAL BILLER) Anatomical Region Laterality Modality Body N/A Computed Tomogra phy 06/26/2024 11:2 8 AM CERTIFIED MEDICAL BILLER Impressions 06/26/2024 11:47 AM CERTIFIED MEDICAL BILLER IMPRESSION: 1. Progressive increase in size of [...] Kulwinder Thomson M.D. Narrative 06/26/2024 11:47 AM CERTIFIED MEDICAL BILLER EXAMINATION: CT ANGIOGRAPHY OF THE ABDOMEN AND [...] is no infrarenal abdominal aortic aneurysm. 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 73 m2 Comment: [...] was last reviewed 2021. Testing performed by: [facility], [address] [place] [address] Blood 06/07/2024 11:3 4 AM CERTIFIED MEDICAL BILLER 06/07/2024 11:43 AM CERTIFIED MEDICAL BILLER us Perez Ornelas MD PhD LAB BLOOD ORDERABLES F inal Result [facility] [address] [place] [address] * Differential, auto (06/07/2024 11:34 AM CERTIFIED MEDICAL BILLER) Neutrophil abs 5.7 1.5 - 6.5 K/cumm Comment:Testing performed by : [facility], [facility] [address], [address] [place] [address] Imm gran abs 0.0 0.0 - 0.1 K/cumm [facility] Comment:Testing performed by : [facility], [facility] [address], [address] [place] [address] Lymphocyte abs 2.5 0.8 - 3.3 K/cumm [facility] Comment:Testing performed by : [facility], [facility], [address] [place] [address] Monocyte abs 0.6 0.2 - 0.8 K/cumm [facility] Comment:Testing performed by : [facility], [facility] 2, [address] [place] [address] Eosinophil abs 0.1 0.0 - 0.5 K/cumm [facility] Comment:Testing performed by : [facility], [facility] 2, [address] [place] [address] Basophil abs 0.0 0.0 - 0.1 K/cumm [facility] Comment:Testing performed by : [facility], [facility] 2, [address] [place] [address] Neutrophil pct 63.7 % [facility] Comment: Interpretive Data Percent cell count reference ranges are not reported, since discordance with absolute values may lead to misinterpretation of CBC data. Current Interpretive Data was last revised on 2017. Testing performed by: [facility], [facility] 2, [address] [place] [address] Imm gran pct 0.2 % [facility] Comment: Interpretive Data Percent cell count reference ranges are not reported, since discordance with absolute values may lead to misinterpretation of CBC data. Current Interpretive Data was last revised on 2017. Testing performed by: [facility], [facility] 2, [address] [place] [address] Lymphocyte pct 28.1 % [facility] Comment: Interpretive Data Percent cell count reference ranges are not reported, since discordance with absolute values may lead to misinterpretation of CBC data. Current Interpretive Data was last revised on 2017. Testing performed by: [facility], [facility] 2, [address] [place] [address] Monocyte pct 6.7 % [facility] Comment: Interpretive Data Percent cell count reference ranges are not reported, since discordance with absolute values may lead to misinterpretation of CBC data. Current Interpretive Data was last revised on 2017. Testing performed by: [facility], [facility] 2, [address] [place] [address] Eosinophil pct 1.0 % [facility] Comment: Interpretive Data Percent cell count reference ranges are not reported, since discordance with absolute values may lead to misinterpretation of CBC data. Current Interpretive Data was last revised on 2017. Testing performed by: [facility], [facility] 2, [address] [place] [address] Basophil pct 0.3 % [facility] Comment: Interpretive Data Percent cell count reference ranges are not reported, since discordance with absolute values may lead to misinterpretation of CBC data. Current Interpretive Data was last revised on 2017. Testing performed by: [facility], [facility] 2, [address] [place] [address] Blood 06/07/2024 11:3 4 AM CERTIFIED MEDICAL BILLER 06/07/2024 11:35 AM CERTIFIED MEDICAL BILLER Perez Ornelas MD PhD LAB BLOOD ORDERABLES F inal Result [facility] [address] [facility]. Department [place] [address] * (ABNORMAL) CBC with auto differential (06/07/2024 11:34 AM CERTIFIED MEDICAL BILLER) WBC 8.9 3.8 - 9.9 K/cumm Comment:Testing performed by : [facility], [facility] 2, [address] [place] [address] Hgb 12.6 11.9 - 15.5 g/dL [facility] Comment:Testing performed by : [facility], [facility] 2, [address] [place] [address] Hct 37.4 35.6 - 45.5 % [facility] Comment:Testing performed by : [facility], [facility] 2, [address] [place] [address] Plt 211 150 - 400 K/cumm [facility] Comment:Testing performed by : [facility] 2, [address] [place] [address] MPV 8.5(L) 9.1 - 12.3 fL [facility] Comment:Testing performed by : [place] [address], [address] [place] [address] RBC 4.60 3.90 - 5.20 M/cumm [facility] Comment:Testing performed by : [place] [address], [place] [address] MCV 81 81 - 96 fL [facility]IV [facility] Comment:Testing performed by : [place] [address], [place] [address] MCH 27.4 27.1 - 33.3 pg [facility] Comment:Testing performed by : [place] [address], [address] [place] [address] MCHC 33.7 32.3 - 35.7 g/dL [facility] Comment:Testing performed by : [place] [address], [address] [place] [address] RDW CV 15.1(H) 11.1 - 14.9 % VINICIUSNER BJWCH Comment:Testing performed by : [place] [address], [address] [place] [address] RDW SD 44.8 35.7 - 48.1 fL CERNER BJWCH Comment:Testing performed by : [place] [address] [place] [address] Blood 06/07/2024 11:3 4 AM CERTIFIED MEDICAL BILLER 06/07/2024 11:35 AM CERTIFIED MEDICAL BILLER Perez Ornelas MD PhD LAB BLOOD ORDERABLES F inal Result VINICIUSNER BJW[facility] [address] [place] [address] * TSH (06/07/2024 11:34 AM CERTIFIED MEDICAL BILLER) Pathologist [facility] [place] Thyroid Stimulating Hormone 1.04 0.30 - 4.20 mcIUnit/mL Comment:Testing performed by : [facility], [address], [place] [address] Blood 06/07/2024 11:3 4 AM CERTIFIED MEDICAL BILLER 06/07/2024 11:43 AM CERTIFIED MEDICAL BILLER us Perez Ornelas MD PhD LAB BLOOD ORDERABLES F inal Result Performing Organization Address [facility] Co de Phone Number GIUSEPPE BJW[facility] [address] Department [place] [address] * Comprehensive metabolic panel (06/07/2024 11:34 AM CERTIFIED MEDICAL BILLER) Pathologist [facility] [place] Sodium 140 135 - 145 mmol/L Comment:Testing performed by : [facility], [address], [place] [address] Potassium, pl 3.3 3.3 - 4.9 mmol/L CERNER BJWCH Comment:Testing performed by : [facility], [address], [place] [address] Chloride 101 97 - 110 mmol/L CERNER BJWCH Comment:Testing performed by : [facility], [address], [place] [address] CO2 25 22 - 32 mmol/L CERNER BJWCH Comment:Testing performed by : [facility], [address], [place] [address] Anion gap 14 2 - 15 mmol/L CERNER BJWCH Comment:Testing performed by : [facility], [address], [place] [address] BUN 12 6 - 25 mg/dL CERNER BJWCH Comment:Testing performed by : [facility], [address], [place] [address] Creatinine 1.05 0.60 - 1.10 mg/dL CERNER BJWCH Comment:Testing performed by : [facility], [address], [place] [address] Glucose 152 70 - 199 mg/dL CERNER [...] was last revised 2022. Testing performed by: [facility], [address], [place] [address] Calcium 9.9 8.5 - 10.3 mg/dL CERNER BJWCH Comment:Testing performed by : [facility], [address], [place] [address] Bilirubin, total 0.3 0.1 - 1.2 mg/dL CERNER BJWCH Comment:Testing performed by : [facility], [address], [place] [address] Protein, pl 7.8 6.5 - 8.5 g/dL CERNER BJWCH Comment:Testing performed by : [facility], [address], [place] [address] Albumin 3.8 3.5 - 5.0 g/dL CERNER BJWCH Comment:Testing performed by : [facility], [address], [place] [address] Alk phos 91 40 - 130 Units/L CERNER BJWCH Comment:Testing performed by : [facility], [address], [place] [address] ALT 7 7 - 45 Units/L CERNER BJWCH Comment:Testing performed by : [facility], [address], [place] [address] AST 17 10 - 45 Units/L CERNER BJWCH Comment:Testing performed by : [facility], [address], [place] [address] Blood 06/07/2024 11:3 4 AM CERTIFIED MEDICAL BILLER 06/07/2024 11:43 AM CERTIFIED MEDICAL BILLER us Perez Ornelas MD PhD LAB BLOOD ORDERABLES F inal Result GIUSEPPE CRAMERRashaadCH [address] [place] [address] from Last 3 Months Insurance MEDICARE SOLUTIONS MEDICARE [facility] MDCR HMO REF [place] [id number] MEDICARE [place] [id number] MEDICARE [facility] MEDICARE Address: [address] [address] [place] [address] MEDICARE [facility] [facility] MEDICARE Address: [address] [address] [place] [address] MEDICARE Member Subscriber Plan / Payer (Ef fective 2008-Present) Name:Mary Hedrick Member ID:[id number] Relation to Subscriber:Self Name:Mary Hedrick Subscriber ID:[id number] Payer ID:[id number] Group ID:Not on file Type:MEDICARE TRADITIONAL Address: [place] [address] MEDICARE Member Subscriber Plan / Payer (Ef fective 2008-Present) Name:Mary Hedrick Member ID:[id number] Relation to Subscriber:Self Name:Mary Hedrick Subscriber ID:[id number] Payer ID:[id number] Group ID:Not on file Type:MEDICARE TRADITIONAL Address: [place] [phone] Advance Directives For more information, please contact: [phone] * Full Code (Latest Code Status on File) Date Activated Date Inactivated Comments 06/29/2024 4:44 PM 07/03/2024 7:32 PM * Full Code Date Activated Date Inactivated Comments 02/08/2024 8:06 PM 02/17/2024 5:04 PM * Full Code Date Activated Date Inactivated Comments 06/28/2019 2:03 PM 07/06/2019 9:44 PM Care Teams Tank Builder Helper Relationship Specialty Start Date End Date Avery Persaud MD [address] [place] [address] PCP - General Family Medicine 03/10/22 Perez Ornelas MD PhD Medical Oncologist/Home Organizer Medical Oncology 09/12/19 Joahnna Dumont MD [address] [facility] [address] [place] [address] Radiation Oncologist Radiation Oncology 07/17/20 Rose Marie Schneider MD PhD [address] [place], [place] [address] Consulting Physician Plastic Surgery 07/03/24 Idris Pickard MD [address] [facility] [address] [place] [address] Surgeon Vascular Surgery 07/03/24
--- OUTSIDE RECORDS SUMMARY | 2024-07-25 23:53 | XMS_ITS ---
Author Organization [facility] Address [address] [facility] [address] [place] [address] Care Team Providers Care Country Singer Name Role Phone Gabriela JERNIGAN, Pablo Primary Care Provider Ángel Fitzpatrick Unavailable [phone] REASON FOR VISIT screening 5ft 2 85 Encounters Encounter Location Date Provider Diagnosis [facility] [address] [place] [address] 08/30/2023 Ángel Benjamin Plan Of Treatment No Information Progress Notes * Ariel BESTaDOB:1945 ( 78 yo F)Acc No.[id number]:08/30/2023 Patient: Mary NOYOLA Provider: Jaciel Benjamin D.O. :1945 A ge:77 Y S ex:Female Date:08/30/2023 Address:[address] [place] [address] [address] [address] Pcp:Pablo Ochoa MD Subjective: * Chief Complaints: * 1 . Screening 5ft 2 85. * Medical History: Objective: * Vitals: Assessment: Plan: * Treatment: * Images: * Electronic signature of Jericho Benjamin DO on 07/25/2024 at 11:52 PM DIRECTOR OF PRODUCT MARKETING Sign off status: Pending * Provider: Jaciel Benjamin D.O. Date: 08/30/2023 Generated for Elizi ng/Faxing/eTransmitting on: 0 07/25/2024 11:52 PM DIRECTOR OF PRODUCT MARKETING
--- OUTSIDE RECORDS SUMMARY | 2024-07-25 23:53 | XMS_ITS | Encounter Summary ---
Author Organization [facility] Address [address] [place] [address] Phone Care Team Providers Care Acute Care Physician Name Role Phone Jeremy Aguillon MD Primary Care Provider [phone] Perez Ornelas MD PhD Unavailable [phone] Johanna Dumont MD Unavailable [phone] Avery Persaud MD Primary Care Provider [phone] Rose Marie Schneider MD PhD Unavailable [phone] Idris Pickard MD Unavailable [phone] Reason for Visit * Reason Onset Date Comments Scheduling Appointments 06/25/2020 left pat ient a message to give us a call back about apt times Encounter Details Date Type Department Care Team (Late st Contact Info) Description 06/25/2020 Telephone [facility] Oncology [address] [facility] [address] [place] [address] Mckayla Lee CMA Scheduling Appointments (left patient a message to give us a call back about apt times ) Social History Tobacco Use Types Packs/Day Years Used Date Smoking Tobacco: Former Cigarettes 0.1 52 1 968 - 05/30/2019 Cigars Smokeless Tobacco: Never Comments:1 cigar daily Alcohol Use Standard Drinks/Week Comments Not Currently 0 (1 standard drink = 0.6 oz pur e alcohol) Comments No Sex and Gender Information Value Date Recorded Sex Assigned at Not on file 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 Gender Identity Not on file Sexual Orientation Not on file documented as of this encounter Plan of Treatment Not on file documented as of this encounter Visit Diagnoses Not on filedocumented in this encounter Additional Health Concerns Infection Onset Date Last Indicated Resolved Time COVID: Suspected 02/08/2024 02/08/2024 02/08/2024 6:47 PM CDT documented as of this encounter Care Teams Acute Care Physician Relationship Specialty Start Date End Date Jeremy Aguillon MD [address] [place] [address] PCP - General Cardiovascular Disease 06/13/19 Avery Persaud MD [address] [place] [address] PCP - General Family Medicine 03/10/22 Perez Ornelas MD PhD [address] [place] [address] Medical Oncologist/Hematologis t Medical Oncology 09/12/19 Johanna Dumont MD [address] [facility] [place] [address] [place] [address] Radiation Oncologist Radiation Oncology 07/17/20 Rose Marie Schneider MD PhD [address] [place] [address] Consulting Physician Plastic Surgery 07/03/24 Idris Pickard MD [address] [facility] [address] [place] [address] Surgeon Vascular Surgery 07/03/24 documented as of this encounter
--- OUTSIDE RECORDS SUMMARY | 2024-07-25 23:53 | XMS_ITS | CONTINUITY OF CARE DOCUMENT ---
Author Name joanna marshall Address Unknown Organization [facility] Address [address] [place] [address] [address] [place] [address] Phone [phone] Care Team Providers Care News Technical Director Name Role Phone joanna marshall Unavailable Unavailable INSURANCE PROVIDERS Payer name Policy type / Coverage type [place] red republican ID UNICARE Other [id number]
--- OUTSIDE RECORDS SUMMARY | 2024-07-25 23:53 | XMS_ITS | Encounter Summary ---
Author Organization [facility] Address [address] [place] [address] Care Team Providers Care Photoengraving Photographer Name Role Phone Jeremy Aguillon MD Primary Care Provider [phone] Perez Ornelas MD PhD Unavailable [phone] Johanna Dumont MD Unavailable [phone] Avery Persaud MD Primary Care Provider [phone] Rose Marie Schneider MD PhD Unavailable [phone] Idris Pickard MD Unavailable [phone] Encounter Details Date Type Department Care Team (Late st Contact Info) Description 07/08/2020 Telephone [facility] Imaging [address] [place] [address] Rosalinda Bates, RT Social History Tobacco Use [...] on file 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 Gender Identity Not on file Sexual Orientation Not on file documented as of this encounter Plan of Treatment Not on file documented as of this encounter Visit Diagnoses Not on filedocumented in this encounter Additional Health Concerns Infection Onset Date Last Indicated Resolved Time COVID: Suspected 02/08/2024 02/08/2024 02/08/2024 6:47 PM CDT documented as of this encounter Care Teams Photoengraving Photographer Relationship Specialty Start Date End Date Jeremy Aguillon MD [address] [place] [address] PCP - General Cardiovascular Disease 06/13/19 Avery Persaud MD [address] [place] [address] PCP - General Family Medicine 03/10/22 Perez Ornelas MD PhD [address] [place] [address] Medical Oncologist/Hematologis t Medical Oncology 09/12/19 Johanna Dumont MD [address] [facility] [address] Radiation Oncologist Radiation Oncology 07/17/20 Rose Marie Schneider MD PhD [address] [place] [address] Consulting Physician Plastic Surgery 07/03/24 Idris Pikcard MD [address] [facility] [place] [place] [address] [place] [address] Surgeon Vascular Surgery 07/03/24 documented as of this encounter
[2024-07-25 23:55] LABS: Basophils Percent Auto 0.1 % (0.2-1.2); Eosinophils Percent Auto 0.3 % (0-4.4); Hemoglobin 11.4 g/dL (12.0-15.0); Immature Granulocyte Absolute 0.02 K/mm3 (0.00-0.031); Immature Granulocyte Percent A 0.2 % (0-0.5); Lymphocytes Percent Auto 14.3 % (18.3-44.2); Mean Corpuscular HGB Conc 32.6 g/dl (32-36); Mean Corpuscular Hemoglobin 27.7 pg (26-34); Mean Platelet Volume 8.8 fl (7.4-10.4); Monocytes Absolute Auto 0.5 K/mm3 (0.1-0.6); Monocytes Percent Auto 5.5 % (2.6-8.5); Neutrophils Absolute Auto 7.2 K/mm3 (1.3-6.7); Neutrophils Percent Auto 79.6 % (45.5-73.1); Platelet Count Result 246 k/mm3 (150-375); Red Blood Count 4.12 M/mm3 (4.2-5.4); Red Cell Distribution Width 17.7 % (11.5-14.5); White Blood Count 9.1 K/mm3 (4.5-10.0)
[2024-07-26 00:05] LABS: Alanine Aminotransferase 12 U/L (6-35); Albumin Level 4.3 g/dL (3.5-5.1); Alkaline Phosphatase 105 U/L (38-126); Anion Gap 14 mmol/L (4-12); Aspartate Amino Transferase 22 U/L (14-36); Bilirubin,Total 0.7 mg/dL (0.2-1.3); Blood Urea Nitrogen 11 mg/dL (7-17); Calcium 9.9 mg/dL (8.4-10.2); Carbon Dioxide 24 mmol/L (22-30); Chloride 101 mmol/L (98-107); Estimated CRCL calculation 23 ml/min; Estimated Glomerular Filt Rate 52; Glucose 132 mg/dL (65-110); Potassium 4.7 mmol/L (3.4-5.0); Sodium 139 mmol/L (137-145)
[2024-07-26 00:06] LABS: Lactic Acid Reflex 2.5 mmol/L (0.7-2.0)
[2024-07-26 00:14] LABS: NT Pro B Type Natriuretic Pept 182 pg/mL (19.9-100)
[2024-07-26] MEDS: DOXYCYCLINE 100 MG/NS 100 ML 100 MG/100 ML BAG IVPB (00:16)
[2024-07-26 00:17] LABS: Troponin I < 0.012 ng/mL (0.000-0.034)
[2024-07-26 00:33] LABS: Influenza A QL RT-PCR Negative (Negative); Influenza B QL RT-PCR Negative (Negative); RSV RNA, RT-PCR Negative (Negative); SARS-CoV-2 RNA PCR Negative (Negative)
[2024-07-26 01:45] VITALS: BP 171/92; PULSE 85; RESP 26; O2SAT 99
[2024-07-26 02:44] VITALS: BP 151/86; PULSE 84; RESP 28; O2SAT 98
[2024-07-26 02:53] LABS: Reflex Lactic Acid Yes or No Add Lactic
[2024-07-26] MEDS: LORazepam (*CRX) 0.5 MG TABLET PO (03:05)
== END 2024-07-26 03:18 | disposition home or self-care (01) ==
PROVIDERS: Physician Assistant; Emergency Provider Student in an Organized Health Care Education/Training Program
DX: J18.9 Pneumonia, unspecified organism (principal); J44.9 Chronic obstructive pulmonary disease, unspecified; Z20.822 Contact with and (suspected) exposure to COVID-19; Z98.890 Other specified postprocedural states; C34.91 Malignant neoplasm of unspecified part of right bronchus or lung; Z92.21 Personal history of antineoplastic chemotherapy; Z92.3 Personal history of irradiation; Z79.02 Long term (current) use of antithrombotics/antiplatelets; Z79.82 Long term (current) use of aspirin
CPT/HCPCS: 36415; 71046; 71275; 80053; 83605; 83880; 84484; 85025; 87637; 93005; 94640; 96365; 96368; 99284; A9270; J0696; Q9967